=== PATIENT | female | born 1960 | race Caucasian/White ===

== ENCOUNTER 2025-01-08 22:34 | Inpatient (IN) | payer MEDICAID, SELFPAY ==
[2025-01-08 22:39] VITALS: BP 202/94; PULSE 68; RESP 16; TEMP 36.8; O2SAT 96
[2025-01-08 22:41] VITALS: BP 213/96
--- NOTE | 2025-01-08 22:43 | XR_ITS ---
Examination: AP chest single view Technique one AP portable upright chest single view Date and time: January 09, 2025, 0105 hours Comparison 02/24/2006. INDICATIONS: Stroke alert, altered mental status focal neurologic deficit today. FINDINGS: Normal heart size. No aspiration pneumonia. The osseous structures are demineralized IMPRESSION: Negative for aspiration pneumonia.
--- NOTE | 2025-01-08 22:43 | XR_ITS ---
Examination: CTA carotids with intravenous contrast CTA brain, head with intravenous contrast. 2-D sagittal, coronal reconstructions. 3-D reconstructions. Exam date and time: January 08, 2025 11:02 PM INDICATIONS: Stroke alert, onset focal neurologic deficit today CTDI: vol (mGy) 20.69 DLP: (mGycm) 531 Technique: Multiple CTA axial brain, head carotid images post intravenous contrast injection 75 cc, [id number]. 2-D sagittal, coronal reconstructions. 3-D reconstructions, 3-D post processing including vascular maximum intensity projection images. Low dose protocols were performed. One or more of the following dose reduction techniques were used; automated exposure control, adjustment of the mA and/or KV according to patient size, use of iterative reconstruction technique. Findings: No significant stenoses common carotid carotid bifurcations or internal carotid artery stenoses Dominant right vertebral artery in the neck with no critical stenoses No cerebral as well as arterial occlusions, or thrombus. IMPRESSION: No significant neck arterial stenoses No cerebral arterial occlusions or thrombus
--- NOTE | 2025-01-08 22:43 | EKG_ITS ---
[facility] Test Date: 2025-01-08 Pat Name: LESLEY SIMONS Department: Room: - Gender: Female [employer] Supervisor: : 1960 Requested By: Deric Murray Order Number: [id number] Reading MD: Deric Murray Measurements Intervals [place] Rate: 74 P: 58 AK: 195 QRS: 7 QRSD: 98 T: 48 QT: 391 QTc: 435 Interpretive Statements SINUS RHYTHM No previous ECG available for comparison /store/S0/[id number]/ecg/[id number].pdf
--- NOTE | 2025-01-08 22:43 | XR_ITS ---
Examination: CT brain head without contrast. 2-D sagittal coronal reconstructions Date and time of exam:January 08 10:59 PM INDICATIONS: Stroke alert, onset focal neurologic deficit today CTDI: vol (mGy):44.2 DLP: (mGycm):909 Technique: Multiple CT axial sections of the brain have been obtained, 5 mm slice thickness. Contrast has not been administered. 2-D sagittal, coronal reconstructions have been obtained Low dose protocols were performed. One or more of the following dose reduction techniques were used; automated exposure control, adjustment of the mA and/or KV according to patient size, use of iterative reconstruction technique. Findings: No significant ventricular enlargement. Intra-axial or extra-axial hemorrhage density is not seen. No mass effect or midline shift Basal cisterns are not remarkable. Fourth ventricle is midline. Cranial vault intact. Impression: Negative for acute hemorrhage, mass effect or midline shift
--- NOTE | 2025-01-08 22:44 | PD.EDNEURO ---
Neuro Symptoms Deficit-RME/HPI General Chief Complaint: Neuro Symptoms/Deficit Stated Complaint: CONFUSED Time Seen by Provider: 01/08/25 22:48 Arrival date/time: 01/08/25 22:34 RME / HPI RME / HPI Narrative: DR. MORALES MAIN ED EVALUATION: 64 y/o female with Hx of Deafness, HTN, DM, and Hypercholesterolemia presents to ED c/o slower-paced gait, slow to respond, and generalized weakness s/p being pulled over by [place] [employer] x approximately 2 hours. Patient stated that she needed to go for a drive, left the house, and ended up in [place]. Son states that patient is usually very active. No other complaints. Related Data Home Medications ?Medication ?Instructions ?Recorded ?Confirmed Albuterol Sulfate HFA (INHALER) 2 puff inhalation Q6HR #0 02/08/14 (PROVENTIL HFA (INHALER)) inhalations Albuterol Sulfate HFA (INHALER) 2 puff inhalation Q6HR #0 02/08/14 (PROVENTIL HFA (INHALER)) inhalations Cyclobenzaprine * (FLEXERIL *) 5 mg PO TID #0 tabs 02/08/14 Fluticasone/Salmeterol DISKUS * 1 puff inhalation BID #0 puffs 02/08/14 (ADVAIR DISKUS 250/50 *) hydrochlorothiazide 25 mg tablet 25 mg PO QAM #0 tabs 02/08/14 ipratropium bromide 0.02 % 0.5 mg inhalation Q6HR ##0 02/08/14 solution for inhalation meclizine 25 mg tablet (Antivert) 25 mg PO QDAY #0 tabs 02/08/14 metoprolol tartrate 25 mg tablet 25 mg PO BID #0 tabs 02/08/14 prednisone 20 mg tablet 20 mg PO QAM #0 tabs 02/08/14 aspirin 81 mg chewable tablet 81 mg PO QDAY ##0 02/22/15 Allergies Allergy/AdvReac Type Severity Reaction Status Date / Time cephalexin Allergy Severe RESPIRATORY Verified 01/08/25 22:35 DISTRESS Penicillins Allergy Severe RESPIRATORY Verified 01/08/25 22:35 DISTRESS adhesive tape Allergy Mild BURN SKIN Verified 01/08/25 22:35 bacitracin Allergy Mild SKIN BURN Verified 01/08/25 22:35 neomycin Allergy Mild SKIN BURN Verified 01/08/25 22:35 polymyxin B Allergy Mild SKIN BURN Verified 01/08/25 22:35 Review of Systems Review of Systems Systems Reviewed: All systems reviewed, normal except as documented Past Medical History Past Medical History CARDIAC: Positive Cardiac Disorders, Hypercholesterolemia and Hypertension ENT: Positive History of ENT Problems and Deafness ENDOCRINE: Positive Endocrine Disorders and Diabetes Mellitus Type 2 Social History SMOKING STATUS: Never smoker ED Exam Narrative Physical exam: Generally patient is alert and very hard of hearing but no obvious distress neck showed no nuchal rigidity and no bruits. Heart regular rate and rhythm lungs clear to auscultation equal bilaterally abdomen soft bowel sounds present also nontender neurologic exam showed no facial asymmetry. She is able to repeat my sentences. No focal motor deficits. Course Quality Measures Suspected type of Stroke: Unknown at this time Last know well: unknown Tenecteplase given: Reason(s) TPA not given: Stroke severity too mild (non-disabling) and Unable to determine eligibility not given stroke Orders Category Date Time Status Bedside Blood Glucose NOW Care 01/08/25 22:37 Active Bedside Blood Glucose NOW Care 01/08/25 22:43 Completed Expanding Machine Operator NOW Care 01/08/25 22:43 Active Continuous Pulse Oximetry NOW Care 01/08/25 22:43 Completed EKG (ED ONLY) *Do not use* NOW Care 01/08/25 22:43 Completed Fingerstick [Bedside Blood Glucose] NOW Care 01/08/25 22:39 Completed In and Out Catheter NEEDED Care 01/08/25 22:43 Active Insert IV NOW Care 01/08/25 22:42 Active Insert IV NOW Care 01/08/25 22:43 Completed MRI Screening NOW Care 01/08/25 23:27 Active NIH Stroke Scale now Care 01/08/25 22:43 Active NPO NOW Care 01/08/25 22:43 Active Nurse Swallow Screen x1 Care 01/08/25 22:43 Active Consult to Neurology / Tele-Neurology Routine Cons 01/08/25 22:[address] angio stroke protocol Stat Exams 01/08/25 22:[address] stroke protocol Stat Exams 01/08/25 22:43 Completed EKG (ED Only) Stat Exams 01/08/25 22:43 Draft MR head/brain wo con Urgent Exams 01/08/25 Stop Req XR chest 1V portable Stat Exams 01/08/25 22:43 Taken CBC Stat Lab 01/08/25 22:42 Completed Comprehensive Metabolic Panel Stat Lab 01/08/25 22:42 Completed Drug Screen,Urine Stat Lab 01/08/25 23:49 Completed Magnesium Stat Lab 01/08/25 22:42 Completed Partial Thromboplastin Time Stat Lab 01/08/25 22:42 Completed Prothrombin Time with INR Stat Lab 01/08/25 22:42 Completed Troponin I Stat Lab 01/08/25 22:42 Completed Urinalysis Stat Lab 01/08/25 23:49 Completed Urine Culture Stat Lab 01/08/25 23:49 Received Aspirin Med 01/08/25 23:25 Discontinued 325 mg PO X1 ONE Clopidogrel [Plavix] Med 01/08/25 23:25 Discontinued 300 mg PO X1 ONE Labetalol IV [Trandate IV] Med 01/08/25 22:43 Active 10 mg IVP Q15M PRN Labetalol IV [Trandate IV] Med 01/08/25 22:51 Discontinued 20 mg IVP X1 ONE Ondansetron Inj [Zofran Inj] Med 01/08/25 22:43 Active 4 mg IVP Q4HR PRN Oxygen Delivery NOW RT 01/08/25 22:43 Active Vital Signs Vital signs: Vital Signs Temperature 98.2 F 01/08/25 22:39 Pulse Rate 68 01/08/25 22:39 Respiratory Rate 16 01/08/25 22:39 Blood Pressure 202/94 H 01/08/25 22:39 Pulse Oximetry (%) 96 01/08/25 22:39 Oxygen Delivery Method Room Air 01/08/25 22:39 Neuro Symptoms / Deficit MDM Narrative MDM Narrative:: Scribe Attestation: IRhea am scribing for and in the presence of Dr. Morales. Provider Notation: Although this document has been carefully reviewed, there may still be some phonetic and other typographical errors.? These errors are purely grammatical due to imperfections in the software program and should not be construed in any way to? compromise the substance of the patient's medical care during this visit.\ Stroke alert was called. It was uncertain when the symptoms may have started. Patient originally arrived hypertensive with a blood pressure of 210/110. Before the patient was able to receive the labetalol the patient's blood pressure spontaneously decreased to 153/93. Head CT was negative. CT angio of the head and neck showed no large vessel occlusion. Dr. Esteban Rodriguez was the stroke neurologist who evaluated the patient. NIHSS score was found to be 3. Dr. Rodriguez recommended giving the patient Plavix 300 mg p.o. and aspirin 325 mg p.o. which she placed in the computer and the patient has received. He recommends for the patient to be admitted to the hospital for further treatment and evaluation and for further stroke evaluation. I did discuss this case with the hospitalist on-call who will admit the patient to hospital for further treatment and evaluation. Patient data External records reviewed:: [facility] previous records (No prior ED records available for review.) Clinical information provided by:: family (Son) Social determinants that could affect healthcare access:: none Patient has the following chronic illnesses:: Hypercholesterolemia, Hypertension, Deafness, Diabetes Mellitus Type 2 How is presenting disease/condition affected by chronic disease/condition?: exacerbated by Evaluation data The following diagnostics were reviewed and interpreted by me:: lab results, radiology exam(s) and EKG tracing(s) Lab and/or radiology exams considered but not ordered:: None Interpretation Summary: RADIOLOGY Head/Brain CT: Findings: No significant ventricular enlargement. Intra-axial or extra-axial hemorrhage density is not seen. No mass effect or midline shift Basal cisterns are not remarkable. Fourth ventricle is midline. Cranial vault intact. Impression: Negative for acute hemorrhage, mass effect or midline shift Head/Neck CTA: Findings: No significant stenoses common carotid carotid bifurcations or internal carotid artery stenoses Dominant right vertebral artery in the neck with no critical stenoses No cerebral as well as arterial occlusions, or thrombus. IMPRESSION: No significant neck arterial stenoses No cerebral arterial occlusions or thrombus Medications / Prescriptions Medications or Prescriptions considered but not ordered:: None Medication administrations:: Medication Administration History Labetalol HCl (Labetalol Inj 5 Mg/Ml Vial 20 Ml) 10 mg IVP Q15M PRN PRN Reason: HYPER Ondansetron HCl (Ondansetron Inj 2 Mg/Ml Inj 2 Ml) 4 mg IVP Q4HR PRN; Protocol PRN Reason: NAUSEA OR VOMITING Stop: 02/07/25 22:42 Discontinued Medications Aspirin (Aspirin 325 Mg Tablet) 325 mg PO X1 ONE Stop: 01/08/25 23:26 Last Admin: 01/08/25 23:53 Dose: 325 mg Documented By: PRIYANKA Clopidogrel Bisulfate (Clopidogrel Bisulfate 75 Mg Tablet) 300 mg PO X1 ONE Stop: 01/08/25 23:26 Last Admin: 01/08/25 23:53 Dose: 300 mg Documented By: PRIYANKA Labetalol HCl (Labetalol Inj 5 Mg/Ml Vial 20 Ml) 20 mg IVP X1 ONE Stop: 01/08/25 22:52 Last Admin: 01/08/25 23:25 Dose: Not Given Documented By: PRIYANKA Non-Admin Reason: Change of Condition See above if any Consultations Consultation(s) initiated? (list below): Yes Consultation #1 (Physician, Specialty, Details): Teleneurologist, Dr. Rodriguez, made aware of the patient?s HPI, PMHx, lab and/or radiology results. Discussed treatment plan. Time: 23:33 Consultation #2 (Physician, Specialty, Details): Dr. Allison made aware of the patient?s HPI, PMHx, lab and/or radiology results. Treatment plan was discussed. Will admit for further evaluation and management. Accepts patient for admission. Time: 00:46 Diagnosis Neuro Differential Diagnosis: delirium, subarachnoid hemorrhage, peripheral neuropathy, cerebrovascular accident (Hypertensive urgency vs emergency) and transient cerebral ischemia Most likely diagnosis given after review of the tests above:: None Admission Indicated Admission indicated?: indicated Admission Request Was there a request for admission?: Yes Admission Attestation Admission request attestation: Discussed case with [] from Hospitalist service regarding admission. Discussed patients ED course, exam findings, labs, and radiology results. The Hospitalist [agrees,declines] to accept the patient for admission. Disposition Plan Disposition Plan: Admit Discharge Plan Plan Patient Disposition: Admit Acute Care w/in Hospital Prescriptions/Referrals Prescriptions/Med Rec: No Action Cyclobenzaprine * (FLEXERIL *) 5 MG tablet 5 mg PO TID Qty: 0 Fluticasone/Salmeterol DISKUS * (ADVAIR DISKUS 250/50 *) 1 DISK/DEV DISK.W.DEV 1 puff Inhalation BID Qty: 0 hydrochlorothiazide 25 MG tablet 25 mg PO QAM Qty: 0 meclizine [Antivert] 25 MG tablet 25 mg PO QDAY Qty: 0 ipratropium bromide 0.2 MG/ML solution 0.5 mg Inhalation Q6HR Qty: 0 Albuterol Sulfate HFA (INHALER) (PROVENTIL HFA (INHALER)) 8.5 GM HFA.AER.AD 2 puff Inhalation Q6HR Qty: 0 prednisone 20 MG tablet 20 mg PO QAM Qty: 0 metoprolol tartrate 25 MG tablet 25 mg PO BID Qty: 0 Albuterol Sulfate HFA (INHALER) (PROVENTIL HFA (INHALER)) 8.5 GM HFA.AER.AD 2 puff Inhalation Q6HR Qty: 0 aspirin 81 MG tablet,chewable 81 mg PO QDAY Qty: 0 Referrals: Micheal Sr MD [Primary Care Provider] - In 1 week Problem List Clinical Impression: Cerebrovascular accident Patient/Caregiver Discharge Instructions Print Language: Slovak Stand Alone Forms: Codie Award Info., Patient Portal Info Letter
[2025-01-08 22:58] LABS: Basophils # (Auto) 0.0 Thou/mm3 (0.0-0.2); Basophils % (Auto) 1 % (0-2.5); Eosinophils # (Auto) 0.3 Thou/mm3 (0.0-0.5); Eosinophils % (Auto) 4 % (0-10); Hematocrit 41.4 % (36.0-46.0); Hemoglobin 13.3 g/dL (12.0-16.0); Immature Granulocytes Auto 0.02 Thou/mm3 (0.00-0.00); Lymphocytes # (Auto) 1.8 Thou/mm3 (1.0-4.8); Lymphocytes % (Auto) 22 % (10-50); Mean Corpuscular HGB Conc 32.1 g/dl (31.0-37.0); Mean Corpuscular Hemoglobin 28.5 pg (25.0-35.0); Mean Corpuscular Volume 89 fL (80-100); Monocytes # (Auto) 0.5 Thou/mm3 (0.0-0.8); Monocytes % (Auto) 7 % (0-12); Neutrophils # (Auto) 5.4 Thou/mm3 (1.8-7.7); Neutrophils % (Auto) 67 % (37-80); Nucleated Red Blood Cell # 0.00 Thou/mm3 (0.00-0.00); Nucleated Red Blood Cell % 0 /100 WBC (0); Platelet Count 233 Thou/mm3 (140-440); RDW Standard Deviation 43.4 fL (36.4-46.3); Red Blood Count 4.66 Miln/mm3 (4.00-5.20); White Blood Count 8.1 Thou/mm3 (3.6-11.0)
[2025-01-08 23:09] VITALS: BP 157/90; PULSE 77; RESP 14; TEMP 36.7; O2SAT 97
[2025-01-08 23:11] LABS: INR 0.9 (0.9-1.3); Partial Thromboplastin Time 27.0 Seconds (22.0-36.0); Prothrombin Time 10.4 Seconds (9.0-12.2)
[2025-01-08 23:13] VITALS: PULSE 77; RESP 20; RESP 97
[2025-01-08 23:14] LABS: Alanine Aminotransferase < 7 U/L (10-49); Albumin, Serum 4.5 gm/dL (3.4-4.8); Albumin/Globulin Ratio 1.7 (1.2-2.2); Alkaline Phosphatase 120 U/L (46-116); Anion Gap 10 (7-16); Aspartate Amino Transferase 19 U/L (0-34); BUN/Creatinine Ratio 7 Ratio (12-20); Bilirubin,Total 0.7 mg/dL (0.3-1.2); Blood Urea Nitrogen 8 mg/dL (9-23); Calcium 10.1 mg/dL (8.3-10.6); Calcium (Corrected) 10.1 mg/dL (8.5-10.1); Carbon Dioxide 23.7 mMol/L (20.0-31.0); Chloride 112 mMol/L (98-107); Creatinine (Component) 1.1 mg/dL (0.6-1.3); Globulin 2.6 gm/dL (2.3-3.5); Glucose 117 mg/dL (74-106); Magnesium 2.2 mg/dL (1.6-2.6); Osmolality,Calculated 289 (275-295); Potassium 3.9 mMol/L (3.4-5.1); Sodium 146 mMol/L (136-145); Total Protein 7.1 gm/dL (5.7-8.2); Troponin I < 0.002 ng/mL (0.0-0.045); eGFR 57 See Note
[2025-01-08 23:20] VITALS: BMI 21.9
--- NOTE | 2025-01-08 23:25 | PC.NURSE ---
PT ARRIVED TO ED WITH SON. SON STATES THAT HER SPEECH HAS BEEN OFF . SON REPORTS THAT PT GOT PULLED OVER BY [place] [employer]. STROKE ALERT WAS CALLED. TELE NEURO WAS ACTIVATED. BLOOD SUAGR WAS TAKEN (112). DR. ESPARZA WAS THE TELE NEURO SPECIALIST. PT HAS EVIDENT APHASIA AND GOES THROUGH PHASES OF CONFUSION. PT DID NOT HAVE ANY MOTOR DEFICITS. PER DR. ESPARZA PT WAS NOT A CANDIATE OF THROMOLTICS. DR. MORALES WAS ADVICED OF MOST RECENT BP. PER DR MONTERROSO, LABETALOL WAS HOLD PER CHANGE IN PTS CONDITION. SON IS CURRENTLY AT BEDSIDE WITH PT
--- NOTE | 2025-01-08 23:38 | PD.TNEURO ---
Tele Neuro Consultation Consultation Date 01/08/25 Most Recent Vital Signs Last Vital Signs Temp 98.1 F 01/08/25 23:09 Pulse 77 01/08/25 23:13 Resp 20 01/08/25 23:13 BP 157/90 H 01/08/25 23:09 Pulse Ox 97 01/08/25 23:09 O2 Del Method Room Air 01/08/25 23:09 Laboratory-Coagulation Panel PT 10.4 Seconds (9.0-12.2) 01/08/25 22:42 INR 0.9 (0.9-1.3) 01/08/25 22:42 APTT 27.0 Seconds (22.0-36.0) 01/08/25 22:42 Consultation Narrative [facility] Tele[facility]rology Consult [facility] Patient Name:???Rosanne Meza Date of :???1960 Identification Number:??? Date of Service:???01/08/2025 22:37:45 Diagnosis:?R47.9 - Transient Speech Difficulties Impression: ?64YOF with a PMHx of congenital deafness, HTN, HLD, DM2, presenting with transient episodes of echolalia. In setting of presentation, principal concern involves wither a small L hemispheric ischemic stroke vs an underlying encephalopathy vs a metabolic encephalopathy. In setting of concern for stroke, presentation peculiar given intermittent clear speech with intact prosody, admixed with episodes of echolalia. Moving forward, and particularly in setting of uncertain true last known well (at 2230, patient was noted to be confused, and son unsure of when the last time she was seen intact would have been), would recommend an aggressive antiplatelet therapy now, with recommendation for admission and stroke workup alongside metabolic and infectious workup Our recommendations are outlined below. Recommendations: ? Stroke/Telemetry Floor ? Neuro Checks (Q2) ? Bedside Swallow Eval ? DVT Prophylaxis ? IV Fluids, Normal Saline ? Head of Bed 30 Degrees ? Euglycemia and Avoid Hyperthermia (PRN Acetaminophen) ? Bolus with Clopidogrel 300 mg bolus x1 and initiate dual antiplatelet therapy with Aspirin 81 mg daily and Clopidogrel 75 mg daily ?Permissive HTN to 180/110 ?MRI Brain wo con ?Lipid panel, TSH, A1C, B12 ?Infectious and metabolic workup per primary team ?Transthoracic Echocardiogram ?PT/OT/SPRAY GUN OPERATOR Eval Sign Out: ? Discussed with Emergency Department Provider Advanced Imaging: CTA Head and Neck Completed. LVO:No Patient is not a candidate for FLOR Metrics: Last Known Well: Unknown Dispatch Time: 01/08/2025 22:37:45 Arrival Time: 01/08/2025 22:34:00 Initial Response Time: 01/08/2025 22:44:12Symptoms: Confusion, repetitive speech. Initial patient interaction: 01/08/2025 22:46:30 NIHSS Assessment Completed: 01/08/2025 22:53:25Patient is not a candidate for Thrombolytic. Thrombolytic Medical Decision: 01/08/2025 22:53:26Patient was not deemed candidate for Thrombolytic because of following reasons: other diagnosis suspected High suspicion for stuttering symptoms in setting of stuttering lacunar stroke vs an underlying encephalopathy. Additionally, unclear last known well as there is clarity on symptoms onset yet unclear when the last time speech was intact occured. CT Head: I personally reviewed all the CT images that were available to me and it showed: no blood products or early ischemic changes Primary Provider Notified of Diagnostic Impression and Management Plan on: 01/08/2025 23:31:34 History of Present Illness:Patient is a 64 year old Female. Patient was brought by private transportation with symptoms of Confusion, repetitive speech. 64YOF with a PMHx of deafness, HTN, HLD, DM2, presenting to the [facility] ED in the setting of acute onset confusion and slowness of speech and movement. Per patient, son, and staff, patient was noticed by her father to have started acting strangely approximately two hours prior to arrival, around 2030pm on 01/08. Of note, patient's son admits that family was likely not paying close attention before this; however, at that time, she was noted to be repeating questions over and over and complaining of a severe headache in the back of her head. After appx one hour, patient told family that she was going for a drive, and was subsequently pulled over by police who noticed that she was confused and repeating questions and statements., prompting call to patient's father who called son, who came to cigar packer and picker patient and bring her to the Emergency Department for evaluation. Patient with ongoing repetitive speech that waxes and wanes, yet able to compose thoughts clearly intermittently with intact speech. Denies any history of strokes or seizures and admits to resolution of headache at this time. Past Medical History: ?Hypertension ?Diabetes Mellitus ?Hyperlipidemia ?There is no history of Atrial Fibrillation ?There is no history of Stroke ?There is no history of Seizures Medications: No Anticoagulant use? No Antiplatelet use Reviewed EMR for current medications Allergies:? Reviewed Social History: Drug Use: No Family History: There is no family history of premature cerebrovascular disease pertinent to this consultation ROS : 14 Points Review of Systems was performed and was negative except mentioned in HPI. Past Surgical History: There Is No Surgical History Contributory To Today?s Visit Examination: BP(163/80),?Pulse(61),?Blood Glucose(112) 1A: Level of Consciousness - Alert; keenly responsive?+ 0 1B: Ask Month and Age - 1 Question Right?+ 1 1C: Blink Eyes & Squeeze Hands - Performs Both Tasks?+ 0 2: Test Horizontal Extraocular Movements - Normal?+ 0 3: Test Visual Fontenot - No Visual Loss?+ 0 4: Test Facial Palsy (Use Grimace if Obtunded) - Normal symmetry?+ 0 5A: Test Left Arm Motor Drift - No Drift for 10 Seconds?+ 0 5B: Test Right Arm Motor Drift - No Drift for 10 Seconds?+ 0 6A: Test Left Leg Motor Drift - No Drift for 5 Seconds?+ 0 6B: Test Right Leg Motor Drift - No Drift for 5 Seconds?+ 0 7: Test Limb Ataxia (FNF/Heel-Michaels) - No Ataxia?+ 0 8: Test Sensation - Normal; No sensory loss?+ 0 9: Test Language/Aphasia - Mild-Moderate Aphasia: Some Obvious Changes, Without Significant Limitation?+ 1 10: Test Dysarthria - Normal?+ 0 11: Test Extinction/Inattention - No abnormality?+ 0 NIHSS Score:?2 NIHSS Free Text :?Intermittently patient with echolalia which intermittently completely resolves and patient's speech returns to intact. No clear focal deficits noted; per son, no facial asymmetry and patient appears to be at baseline with exception of intermittent repetitive speech. Pre-Morbid Modified [place] Scale:2 Points = Slight disability; unable to carry out all previous activities, but able to look after own affairs without assistance Spoke with :?Dr Blount This consult was conducted in real time using interactive audio and video technology. Patient was informed of the technology being used for this visit and agreed to proceed. Patient located in hospital and provider located at home/office setting. Patient is being evaluated for possible acute neurologic impairment and high probability of imminent or life-threatening deterioration. I spent total of 25 minutes providing care to this patient, including time for face to face visit via telemedicine, review of medical records, imaging studies and discussion of findings with providers, the patient and/or family. Dr Ryan Rodriguez [facility] For Inpatient follow-up with [facility] physician please call [facility] at . As we are not an outpatient service for any post hospital discharge needs please contact the hospital for assistance. If you have any questions for the [facility] physicians or need to reconsult for clinical or diagnostic changes please contact us via [facility] at .
[2025-01-08] MEDS: CLOPIDOGREL BISULFATE 75 MG TABLET 300 MG PO (23:53)
[2025-01-09] VITALS (10 sets, daily range): BP systolic 112–190; BP diastolic 68–94; PULSE 61–87; RESP 18–98; TEMP 36.1–36.9; O2SAT 96–100; BMI 15.0
[2025-01-09 00:10] LABS: Collection Type, Urine Clean Catch
[2025-01-09 00:16] LABS: Bilirubin,Urine Negative (Negative); Blood,Urine Negative (Negative); Clarity,Urine Clear (Clear/Hazy); Color,Urine Lt-Yellow (Lt Yel-Yel); Glucose, Urine Negative (Negative); Ketones,Urine Negative (Negative); Leukocyte Esterase,Urine Positive (Negative); Nitrite,Urine Negative (Negative); PH,Urine 7.0 (5.0-7.0); Protein,Urine Negative (Neg - Trace); RBC,Urine 2 /hpf (0-3); Specific Gravity,Urine 1.040 (1.001-1.035); Squamous Epithelial Cell,Urine 1 /hpf (0-5); Urobilinogen,Urine Negative mg/dL (0.0-1.0); WBC,Urine 1 /hpf (0-5)
[2025-01-09 00:24] LABS: Amphetamine/Methamp Scrn,U Negative (Negative); Barbiturate Screen,Urine Negative (Negative); Benzodiazepines Screen,Urine Negative (Negative); Benzoylecgonine Screen, Ur Negative (Negative); Fentanyl Screen,Urine Negative (Negative); Opiate Screen,Urine Negative (Negative); THC Screen,Urine Negative (Negative)
--- NOTE | 2025-01-09 01:10 | ECHO_ITS ---
Transthoracic Echo Report Ht (in): Wt (lb): Exam Location: Echo Lab Status: Inpatient Software Controls Engineer: Shabnam Farmer Indications: Procedure Performed: BP: 137 / 73 HR: 68 MEASUREMENTS (Male / Female) Normal Values 2D ECHO LV Diastolic Diameter PLAX 4.4 cm 4.2 - 5.9 / 3.9 - 5.3 cm LV Systolic Diameter PLAX 3.0 cm IVS Diastolic Thickness 0.8 cm 0.6 - 1.0 / 0.6 - 0.9 cm LVPW Diastolic Thickness 0.8 cm 0.6 - 1.0 / 0.6 - 0.9 cm LV Relative Wall Thickness 0.4 LVOT Diameter 1.9 cm Aortic Root Diameter 2.4 cm LA Systolic Diameter LX 3.2 cm 3.0 - 4.0 / 2.7 - 3.8 cm M-MODE Aortic Root Diameter MM 2.3 cm LA Systolic Diameter MM 3.4 cm LA Ao Ratio MM 1.5 AV Cusp Separation MM 1.6 cm DOPPLER AV Peak Velocity 135.5 cm/s AV Peak Gradient 7.3 mmHg AV Mean Gradient 5.0 mmHg AV Velocity Time Integral 30.8 cm LVOT Peak Velocity 109.5 cm/s LVOT Peak Gradient 4.8 mmHg LVOT Velocity Time Integral 26.8 cm AV Area Cont Eq vti 2.5 cm? AV Area Cont Eq pk 2.3 cm? MV Area PHT 4.1 cm? Mitral E Point Velocity 43.2 cm/s Mitral A Point Velocity 53.4 cm/s Mitral E to A Ratio 0.8 LV E' Lateral Velocity 7.9 cm/s Mitral E to LV E' Lateral Ratio 5.4 LV E' Septal Velocity 6.3 cm/s Mitral E to LV E' Septal Ratio 6.8 FINDINGS Left Ventricle Normal left ventricular size, wall thickness, systolic function with no obvious regional wall motion abnormalities. The ejection fraction is visually estimated at 55-60 %. There is grade I diastolic dysfunction of the left ventricle (impaired relaxation pattern). Right Ventricle The right ventricle is normal in size and systolic function. Left Atrium The left atrium is normal by two-dimensional, color flow and Doppler imaging with no structural abnormalities, no thrombus formation present. Right Atrium The right atrium is normal by two-dimensional imaging, color flow and Doppler imaging with no structural abnormalities, no thrombus formation present. Atrial Septum The interatrial septum appears normal with no evidence of a shunt. Aorta The aorta is normal by two-dimensional, color flow and Doppler interrogation. Mitral Valve The mitral valve is normal by two-dimensional, color flow and Doppler interrogation. There is no significant mitral valve regurgitation, stenosis or prolapse. Aortic Valve The aortic valve is trileaflet and normal by two-dimensional, color flow and Doppler interrogation. There is no significant aortic valve regurgitation. Tricuspid Valve The tricuspid valve is normal by two-dimensional, color flow and Doppler interrogation. There is trace tricuspid valve regurgitation. Pulmonic Valve The pulmonic valve is not well visualized. There is no significant pulmonic valve regurgitation. Vessels The pulmonary artery appears normal. The inferior vena cava pulmonary and hepatic veins appear normal. Pericardium The pericardium is normal by two-dimensional imaging. There is no significant pericardial effusion. CONCLUSIONS Indication: Stroke Negative bubble study. No evidence of intracardiac shunts or PFO detected. No evidence of cardiac thrombi. Normal left ventricular size and function. Estimated EF at 55-60 %. There is grade I diastolic dysfunction. The RV is normal in size and systolic function. Trace TR. Cielo Penaloza (Electronically Signed) Final Date: 09 January 2025 11:54
--- NOTE | 2025-01-09 01:19 | PD.RESHP ---
Documentation for date of: 01/09/25 HPI History of Present Illness Chief complaint: Altered mental status History of present illness: 64-year-old female with past medical history of hypertension, [id number] type 2 diabetes, rheumatoid arthritis presented to the ED on 01/08 after she was found by family members for having altered mental status. According to ultrasound, patient was seen outside her house with red face and out of her baseline mental status. Patient apparently repeating same sentences that are set to her. Patient herself states that she feels fine and denies having any concerning symptoms such as headache, dizziness, chest pain, shortness of breath, abdominal pain or weakness. Patient has not had a similar episode in the past. Difficult to obtain history from patient as she has bouts of repeating herself multiple times. Medical history: As stated above Surgical history: Total abdominal hysterectomy Allergies: Cephalexin, penicillin caused respiratory distress, adhesive tape, bacitracin, neomycin polymyxin B causes skin burn Medications: Pending med rec Family history: Noncontributory Social history: Patient lives with stepfather in [place], is . Does not work currently and denies any smoking tobacco, alcohol or illicit drug use. ROS: All 12 systems assessed and the patient denies unless otherwise stated in HPI. In the ED, patient presented in hypertensive emergency blood pressure 202/94, heart rate 68, respiratory rate 16, afebrile satting 96 on room air. Labs largely unremarkable, BUN of 8, creatinine 1.1 with EGFR of 57, urinalysis does not show any sign of infection. EKG shows sinus rhythm without any concerning ST changes, head CT is negative for any acute findings and head and neck CTA does not show any significant arterial stenosis or cerebral arterial occlusion/thrombus. Stroke alert was initiated in the ED with NIHSS score of 3. Patient will be admitted for stroke rule out with neurology consultation and close monitoring. Exam Vital Signs Temp Pulse Resp BP Pulse Ox O2 Del Method 98.1 F 77 20 157/90 H 97 Room Air 01/08/25 23:09 01/08/25 23:13 01/08/25 23:13 01/08/25 23:09 01/08/25 23:09 01/08/25 23:09 Narrative Exam Physical Exam: GENERAL: Awake, answering questions appropriately but Echolalia present, appears stated age HEENT: NC/AT. Moist mucosa. PERRLA/EOMI. CARDIO: Heart RRR, no obvious murmurs, no JVD. PULM: No coughing or visible SOB. Lungs CTA B/L. GI: Abdomen soft, NT/ND, +BS. SKIN/MSK/EXT: No wounds/discoloration/rashes/edema/amputations. +Pedal pulses present B/L. NEURO: Oriented x3, cranial nerves II to XII grossly intact, muscle strength 5 out of 5 in bilateral upper and lower extremities, sensations grossly intact, Moves extremities x4, no focal neurologic deficits noted. Results: Labs 01/08/25 22:42 01/08/25 22:42 Labs: Short CBC 01/08/25 Range/Units 22:42 WBC 8.1 (3.6-11.0) Thou/mm3 Hgb 13.3 (12.0-16.0) g/dL Hct 41.4 (36.0-46.0) % Plt Count 233 (140-440) Thou/mm3 BMP 01/08/25 22:42 Sodium 146 H Potassium 3.9 Chloride 112 H Carbon Dioxide 23.7 BUN 8 L Creatinine 1.1 Glucose 117 H Calcium 10.1 Cardiac Enzymes 01/08/25 Range/Units 22:42 Troponin I < 0.002 (0.0-0.045) ng/mL Liver Function 01/08/25 Range/Units 22:42 Total Bilirubin 0.7 (0.3-1.2) mg/dL AST 19 (0-34) U/L ALT < 7 L (10-49) U/L Alkaline Phosphatase 120 H (46-116) U/L Albumin 4.5 (3.4-4.8) gm/dL Urine 01/08/25 Range/Units 23:49 Urine Color Lt-Yellow (Lt Yel-Yel) Urine Clarity Clear (Clear/Hazy) Urine pH 7.0 (5.0-7.0) Ur Specific [place] 1.040 H (1.001-1.035) Urine Protein Negative (Neg - Trace) Urine Glucose (UA) Negative (Negative) Quality Measures Quality Measures stroke Suspected type of Stroke: Unknown at this time Tenecteplase given: Reason(s) Tenecteplase not given: Outside the time window and Stroke severity too mild (non-disabling) not given Rehab services: PT evaluation ordered VTE Prophylaxis: mechanical Antithrombotic by day 2:: ordered Statin ordered: >75 y/o moderate or high intensity dose Anticoagulation ordered for A-fib or flutter (current or hx): not indicated Medications Home Medications and Allergies Home Medications ?Medication ?Instructions ?Recorded ?Confirmed ?Type Albuterol Sulfate HFA (INHALER) 2 puff inhalation Q6HR #0 02/08/14 History (PROVENTIL HFA (INHALER)) inhalations Albuterol Sulfate HFA (INHALER) 2 puff inhalation Q6HR #0 02/08/14 History (PROVENTIL HFA (INHALER)) inhalations Cyclobenzaprine * (FLEXERIL *) 5 mg PO TID #0 tabs 02/08/14 History Fluticasone/Salmeterol DISKUS * 1 puff inhalation BID #0 puffs 02/08/14 History (ADVAIR DISKUS 250/50 *) hydrochlorothiazide 25 mg tablet 25 mg PO QAM #0 tabs 02/08/14 History ipratropium bromide 0.02 % 0.5 mg inhalation Q6HR ##0 02/08/14 History solution for inhalation meclizine 25 mg tablet (Antivert) 25 mg PO QDAY #0 tabs 02/08/14 History metoprolol tartrate 25 mg tablet 25 mg PO BID #0 tabs 02/08/14 History prednisone 20 mg tablet 20 mg PO QAM #0 tabs 02/08/14 History aspirin 81 mg chewable tablet 81 mg PO QDAY ##0 02/22/15 History Allergies Allergy/AdvReac Type Severity Reaction Status Date / Time cephalexin Allergy Severe RESPIRATORY Verified 01/08/25 22:35 DISTRESS Penicillins Allergy Severe RESPIRATORY Verified 01/08/25 22:35 DISTRESS adhesive tape Allergy Mild BURN SKIN Verified 01/08/25 22:35 bacitracin Allergy Mild SKIN BURN Verified 01/08/25 22:35 neomycin Allergy Mild SKIN BURN Verified 01/08/25 22:35 polymyxin B Allergy Mild SKIN BURN Verified 01/08/25 22:35 Visit Medications Acetaminophen (Acetaminophen 325 Mg Tablet) 650 mg PO Q6H PRN PRN Reason: PAIN SCALE 1-3 (mild Stop: 02/08/25 01:07 Aspirin (Aspirin Ec 81 Mg Tabec) 81 mg PO QDAY DIGNA Stop: 02/08/25 08:59 Clopidogrel Bisulfate (Clopidogrel Bisulfate 75 Mg Tablet) 75 mg PO QDAY DIGNA Stop: 02/08/25 08:59 Dextrose (Dextrose 50%-Water Inj 50 Ml Syringe) 25 ml IV Q15MIN PRN PRN Reason: BG 50-70 responsive npo pt Stop: 02/08/25 01:10 Dextrose (Dextrose 50%-Water Inj 50 Ml Syringe) 50 ml IV Q15MIN PRN PRN Reason: BG <50 OR BG <70 & pt unresponsive Stop: 02/08/25 01:10 Glucagon (Glucagon Inj 1 Mg Vial) 1 mg IM Q15MIN PRN PRN Reason: BG <70, and no IV access Insulin Human Lispro (Insulin Lispro (Admelog) 1 Unit/0.01 Ml Unit) 0 unit [facility]; Protocol Stop: 02/08/25 07:29 Labetalol HCl (Labetalol Inj 5 Mg/Ml Vial 20 Ml) 10 mg IVP Q15M PRN PRN Reason: BP >200/105 and HR >75 Ondansetron HCl (Ondansetron Inj 2 Mg/Ml Inj 2 Ml) 4 mg IVP Q4HR PRN; Protocol PRN Reason: NAUSEA OR VOMITING Stop: 02/07/25 22:42 Sennosides (Senna Tablet) 1 tab PO QDAY PRN; Protocol PRN Reason: constipation Stop: 02/08/25 01:07 Discontinued Medications Aspirin (Aspirin 325 Mg Tablet) 325 mg PO X1 ONE Stop: 01/08/25 23:26 Last Admin: 01/08/25 23:53 Dose: 325 mg Clopidogrel Bisulfate (Clopidogrel Bisulfate 75 Mg Tablet) 300 mg PO X1 ONE Stop: 01/08/25 23:26 Last Admin: 01/08/25 23:53 Dose: 300 mg Labetalol HCl (Labetalol Inj 5 Mg/Ml Vial 20 Ml) 10 mg IVP Q15M PRN PRN Reason: HYPER Labetalol HCl (Labetalol Inj 5 Mg/Ml Vial 20 Ml) 20 mg IVP X1 ONE Stop: 01/08/25 22:52 Last Admin: 01/08/25 23:25 Dose: Not Given Assessment & Plan Plan 64-year-old female with past medical history of hypertension, [id number]-zwwlnpdff type 2 diabetes, rheumatoid arthritis presented to the ED on 01/08 after she was found by family members for having altered mental status will be admitted for stroke rule out with neurology consultation and close monitoring. #Stroke rule out As noted above, patient presenting with change in mental status DDx: Stroke/TIA, infectious etiology, hypertensive encephalopathy less likely to be seizure In the ED, DAVID score of 3 On assessment, patient has echolalia but otherwise neurologic exam is largely negative EKG shows sinus rhythm without any concerning ST changes head CT is negative for any acute findings and head and neck CTA does not show any significant arterial stenosis or cerebral arterial occlusion/thrombus Plan: Neurology consulted, appreciate recommendations Initiated DAPT with aspirin and Plavix High intensity statin Echo with bubble study MR stroke protocol Permissive hypertension as below Head of bed greater than 30, neurochecks every 4 Aspiration precautions Nurse swallow screen PT consultation Euthermic Monitor blood sugars #Hypertensive emergency #Hypertension As noted above, patient presented with systolic in the high 200s Patient has a history of hypertension and takes metoprolol tartrate, hydrochlorothiazide? 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 Chronic medical problems Pending med rec Plan: Resume home medications when appropriate Health Maintenance: Lines: PIV Diet: Nurse swallow screen, cardiac diet/carb consistent low Bowel: Senna as needed GI prophylaxis: Not needed DVT prophylaxis: SCD Dispo: Stroke rule out Code: Full Patient seen and assessed with attending Dr. Estefany Forte, DO PGY-2 Internal Medicine - [facility] Attending Provider Attestation/Addendum I attest that I was physically present for the evaluation, physical examination, lab and imaging review of the patient with the residents. I discussed the case with the residents and agree with the findings and plans of care as documented above. After examination of the patient and review of the clinical data I feel that this patient needs admission to the hospital for further treatment/evaluation. Patient is a 64 years old female with past medical history of hypertension, diabetes mellitus, rheumatoid arthritis was presented to the ED with complaint of altered mental status. As per the son at bedside, patient was found outside her house and appeared acting differently than her baseline. She was apparently repeating same sentences said to her. At bedside, patient is alert and oriented, able to answer questions and follow commands. Denies any headache, dizziness, chest pain, shortness of breath, limb weakness, numbness or tingling. In the ED, patient was hypertensive with blood pressure of 202/94. Rest of the vitals were within normal limits. Lab results were nonconcerning. Urinalysis negative for pyuria. EKG shows sinus rhythm without ST changes. Head CT was negative for acute hemorrhage, mass effect or midline shift. CTA head/neck negative for intracranial arterial occlusion or thrombus. Stroke alert was called in the ED, teleneurology was consulted. Recommended admission for further workup to rule out stroke. We will admit the patient to rule out stroke/hypertensive emergency. Started on dual antiplatelets, statin. We will obtain echocardiography and MRI/MRA. Physical therapy, speech therapy ordered. We will allow permissive hypertension, patient's blood pressure slightly improved after labetalol she received in the ED. We will continue with labetalol as needed for blood pressure more than 200/105. Started on insulin regimen for diabetes. Kidney function appears to be stable, we will continue to monitor closely and avoid nephrotoxins. Riley Allison MD
--- NOTE | 2025-01-09 01:56 | PC.NURSE ---
PT AMBULATED TO RESTROOM. PT DENIES SOB AND WEAKNESS. THIS RN WAS WITH PT SHE WALKED TO RESTROOM.
[2025-01-09 06:03] LABS: Basophils # (Auto) 0.0 Thou/mm3 (0.0-0.2); Basophils % (Auto) 1 % (0-2.5); Eosinophils # (Auto) 0.2 Thou/mm3 (0.0-0.5); Eosinophils % (Auto) 3 % (0-10); Hematocrit 38.4 % (36.0-46.0); Hemoglobin 12.5 g/dL (12.0-16.0); Immature Granulocytes Auto 0.00 Thou/mm3 (0.00-0.00); Lymphocytes # (Auto) 2.1 Thou/mm3 (1.0-4.8); Lymphocytes % (Auto) 37 % (10-50); Mean Corpuscular HGB Conc 32.6 g/dl (31.0-37.0); Mean Corpuscular Hemoglobin 29.3 pg (25.0-35.0); Mean Corpuscular Volume 90 fL (80-100); Monocytes # (Auto) 0.5 Thou/mm3 (0.0-0.8); Monocytes % (Auto) 8 % (0-12); Neutrophils # (Auto) 3.0 Thou/mm3 (1.8-7.7); Neutrophils % (Auto) 51 % (37-80); Nucleated Red Blood Cell # 0.00 Thou/mm3 (0.00-0.00); Nucleated Red Blood Cell % 0 /100 WBC (0); Platelet Count 195 Thou/mm3 (140-440); RDW Standard Deviation 44.0 fL (36.4-46.3); Red Blood Count 4.26 Miln/mm3 (4.00-5.20); White Blood Count 5.8 Thou/mm3 (3.6-11.0)
[2025-01-09 06:55] LABS: Alanine Aminotransferase 8 U/L (10-49); Anion Gap 10 (7-16); Aspartate Amino Transferase 19 U/L (0-34); BUN/Creatinine Ratio 6 Ratio (12-20); Bilirubin,Total 0.7 mg/dL (0.3-1.2); Blood Urea Nitrogen 7 mg/dL (9-23); Calcium 8.9 mg/dL (8.3-10.6); Carbon Dioxide 22.8 mMol/L (20.0-31.0); Cardiac Risk Estimate 3.1 RATIO (3.7-5.6); Chloride 113 mMol/L (98-107); Cholesterol 169 mg/dL (132-200); Creatinine (Component) 1.1 mg/dL (0.6-1.3); Estimated Creatinine Clearance 49.6 mL/min (>60); Glucose 97 mg/dL (74-106); HDL Cholesterol 55 mg/dL (40-60); LDL Cholesterol,Calculated 98 mg/dL (0-130); Osmolality,Calculated 288 (275-295); Potassium 3.8 mMol/L (3.4-5.1); Sodium 146 mMol/L (136-145); Thyroid Stimulating Hormone 0.88 uIU/mL (0.55-4.78); Total Protein 6.0 gm/dL (5.7-8.2); Triglycerides 79 mg/dL (30-150); eGFR 57 See Note
[2025-01-09 07:02] LABS: Albumin, Serum 3.5 gm/dL (3.4-4.8); Albumin/Globulin Ratio 1.4 (1.2-2.2); Alkaline Phosphatase 95 U/L (46-116); Calcium (Corrected) 9.3 mg/dL (8.5-10.1); Globulin 2.5 gm/dL (2.3-3.5)
[2025-01-09 07:16] LABS: Glucose Estimated Average 120 mg/dL (80-131); Hemoglobin A1C 5.8 % Hgb (4.8-6.0)
[2025-01-09] MEDS: ASPIRIN EC 81 MG TABEC PO (09:20)
[2025-01-09] MEDS: CLOPIDOGREL BISULFATE 75 MG TABLET PO (09:21)
[2025-01-09] MEDS: ACETAMINOPHEN 325 MG TABLET 650 MG PO (10:05)
--- NOTE | 2025-01-09 13:43 | ESPR_ITS ---
Documentation for date of: 01/09/25 Subjective Subjective Interval history: No acute events overnight. Patient seen and examined at bedside this AM. Patient is deaf since and was able to answer questions by reading lips. Endorsed frontal headache this morning, gave Tylenol x1, reported history of migraines in the past. Alert and oriented to self and place, not to time. No neurological deficits observed, strength 5/5 in all extremities. No echolalia observed, likely resolved. Labs and vitals were reviewed. Sodium was elevated at 146, possibly secondary to dehydration. No other lab or imaging abnormalities noted. Son last talked to patient a month ago, only recently found her altered last night. Per family, patient is not at her mental baseline. Pending MRI and echo bubble. Continue stroke protocol. Review of systems otherwise negative except what is mentioned above. Exam Vital Signs Temp Pulse Resp BP Pulse Ox O2 Del Method 98.1 F 73 18 153/80 H 98 Room Air 01/09/25 12:00 01/09/25 12:00 01/09/25 12:00 01/09/25 12:00 01/09/25 12:01/09/25 12:00 Narrative Exam Physical Exam General: Awake and in no acute distress. Conversational and non-toxic appearing. HEENT: Normocephalic, atraumatic, mucous membranes moist. Heart: Regular rate and rhythm, normal S1 and S2, no murmurs. Lungs: Clear to auscultation with no wheezing or crackles. Abdomen: Soft, nondistended, nontender, positive bowel sounds. No guarding or rebound tenderness. Neurologic: Alert and oriented x2 (oriented to self and place, not time), no gross neurological deficit, and patient able to move all 4 extremities. Extremities: No edema. Skin: No rash or ecchymoses. Objective Labs 01/10/25 04:53 01/10/25 04:53 Labs: Laboratory Results - last 24 hr 01/08/25 01/08/25 01/09/25 22:42 23:49 05:10 WBC 8.1 5.8 RBC 4.66 4.26 Hgb 13.3 12.5 Hct 41.4 38.4 MCV 89 90 MCH 28.5 29.3 MCHC 32.1 32.6 RDW Std Deviation 43.4 44.0 Plt Count 233 195 D Neut % (Auto) 67 51 Lymph % (Auto) 22 37 [place] % (Auto) 7 8 Eos % (Auto) 4 3 Baso % (Auto) 1 1 Neut # (Auto) 5.4 3.0 Lymph # (Auto) 1.8 2.1 [place] # (Auto) 0.5 0.5 Eos # (Auto) 0.3 0.2 Baso # (Auto) 0.0 0.0 Immature Gran # (Auto) 0.02 H 0.00 Absolute Nucleated RBC 0.00 0.00 Immature Gran % 0 0 Nucleated RBC % 0 0 PT 10.4 INR 0.9 APTT 27.0 Sodium 146 H 146 H Potassium 3.9 3.8 Chloride 112 H 113 H Carbon Dioxide 23.7 22.8 Anion Gap 10 10 BUN 8 L 7 L Creatinine 1.1 1.1 Estim Creat Clear Calc Not Performed. 49.6 L eGFR 57 L 57 L BUN/Creatinine Ratio 7 L 6 L Glucose [address] Glu mg/dL 120 Hemoglobin A1c 5.8 Calculated Osmolality 289 288 Calcium 10.1 8.9 Corrected Calcium 10.1 9.3 Magnesium 2.2 Total Bilirubin 0.7 0.7 AST 19 19 ALT < 7 L 8 L Alkaline Phosphatase 120 H 95 D Troponin I < 0.002 Total Protein 7.1 6.0 Albumin 4.5 3.5 D Globulin 2.6 2.5 Albumin/Globulin Ratio 1.7 1.4 Triglycerides 79 Cholesterol 169 LDL Cholesterol, Calc 98 HDL Cholesterol 55 Cholesterol/HDL Ratio 3.1 L TSH 0.88 Ur Collection Type Clean Catch Urine Color Lt-Yellow Urine Clarity Clear Urine pH 7.0 Ur Specific [place] 1.040 H Urine Protein Negative Urine Glucose (UA) Negative Urine Ketones Negative Urine Blood Negative Urine Nitrite Negative Urine Bilirubin Negative Urine Urobilinogen (Auto) Negative Ur Leukocyte Esterase Positive Urine RBC 2 Urine WBC 1 Ur Squamous Epith Cells 1 Urine Bacteria None Urine Opiates Screen Negative Urine Fentanyl Screen Negative Ur Barbiturates Screen Negative U Amphetamin/Meth Scrn Negative U Benzodiazepines Scrn Negative U Cocaine Metab Screen Negative U Marijuana (THC) Screen Negative Quality Measures Quality Measures stroke Suspected type of Stroke: Unknown at this time Tenecteplase given: Reason(s) Tenecteplase not given: Outside the time window and Stroke severity too mild (non-disabling) not given Rehab services: PT evaluation ordered VTE Prophylaxis: pharmaceutical Antithrombotic by day 2:: ordered Statin ordered: <75 y/o high intensity dose Anticoagulation ordered for A-fib or flutter (current or hx): not indicated Assessment & Plan Assessment Current Active Medications: Generic Name Dose Route Start Last Admin Trade Name Freq PRN Reason Stop Dose Admin Acetaminophen 650 mg 01/09/25 01:08 01/09/25 10:05 Acetaminophen 325 Mg Tablet PO 02/08/25 01:07 650 mg Q6H PRN Administration PAIN SCALE 1-3 (mild Aspirin 81 mg 01/09/25 09:00 01/09/25 09:20 Aspirin Ec 81 Mg Tabec PO 02/08/25 08:59 81 mg QDAY DIGNA Administration Atorvastatin Calcium 80 mg 01/09/25 21:00 Atorvastatin Calcium 20 Mg Tablet PO 02/08/25 20:59 HS DIGNA Clopidogrel Bisulfate 75 mg 01/09/25 09:00 01/09/25 09:21 Clopidogrel Bisulfate 75 Mg Tablet PO 02/08/25 08:59 75 mg QDAY DIGNA Administration Dextrose 25 ml 01/09/25 01:11 Dextrose 50%-Water Inj 50 Ml Syringe IV 02/08/25 01:10 Q15MIN PRN BG 50-70 responsive npo pt Dextrose 50 ml 01/09/25 01:11 Dextrose 50%-Water Inj 50 Ml Syringe IV 02/08/25 01:10 Q15MIN PRN BG <50 OR BG <70 & pt unresponsive Glucagon 1 mg 01/09/25 01:11 Glucagon Inj 1 Mg Vial IM Q15MIN PRN BG <70, and no IV access Insulin Human Lispro 0 unit 01/09/25 07:30 01/09/25 11:42 Insulin Lispro (Admelog) 1 Unit/0.01 Ml Unit SC 02/08/25 07:29 Not Given ACHS DIGNA Protocol Labetalol HCl 10 mg 01/09/25 01:19 Labetalol Inj 5 Mg/Ml Vial 20 Ml IVP 02/08/25 01:18 Q6HR PRN BP >200/105 and HR >75 Ondansetron HCl 4 mg 01/08/25 22:43 Ondansetron Inj 2 Mg/Ml Inj 2 Ml IVP 02/07/25 22:42 Q4HR PRN NAUSEA OR VOMITING Protocol Sennosides 1 tab 01/09/25 01:08 Senna Tablet PO 02/08/25 01:07 QDAY PRN constipation Protocol Plan Patient is a 64-year-old female with past medical history of congenital deafness, hypertension, DM2 non insulin dependent, rheumatoid arthritis who presented on 01/08 after she was found by family members for having altered mental status, admitted for stroke rule out with neurology consultation and close monitoring. #Acute encephalopathy #Concern for stroke/TIA On admission, DAVID score of 3 and on exam, presented with echolalia; otherwise neurologic exam was unremarkable. EKG showed sinus rhythm without any concerning ST changes. CT head and CTA were unremarkable. 01/09: Patient was alert and oriented x2 (oriented to self and place, but not time); was unable to tell me her but possible unable to read lips very well. Son last spoke to her a month ago and says she is not at her mental baseline. Plan: - Neurology consulted, appreciate recommendations - Continue aspirin and Plavix - Continue high intensity statin - Pending MRI - Pending echo with bubble study - Pending PT consultation - Permissive hypertension as below - Head of bed greater than 30, neurochecks every 4 - Aspiration precautions - Neurology Dr. Rodríguez consulted, appreciate recommendations #Hypertensive emergency - resolved #Hx of hypertension On admission, systolic was in the high 200s. Takes metoprolol tartrate, hydrochlorothiazide at home. Pending official med rec. Plan: - Permissive hypertension with goal systolic blood pressure 180/100 due to concern for stroke - Ordered labetolol prn if blood pressure greater than 200/105 - Continue telemetry monitoring #Hx of type 2 diabetes, non insulin dependent Hgb A1c 5.8 on 01/09/25. Pending official med rec. Plan: - Sliding scale insulin #CKD stage IIIa GFR 57 on admission. Likely secondary to diabetic nephropathy versus hypertensive nephropathy. Plan: - Avoid nephrotoxic agent - Renally dose medications - Monitor with morning labs - Replete electrolytes when needed #Congenital deafness #Rheumatoid arthritis #Asthma/COPD? Chronic medical problems Pending med rec Plan: - Resume home medications when appropriate Health Maintenance: Lines: PIV Diet: Nurse swallow screen, cardiac diet/carb consistent low Bowel: Senna as needed GI prophylaxis: Not needed DVT prophylaxis: SCD Dispo: Stroke rule out Code: Full Patient plan of care was discussed with the attending physician, Dr. Pizarro. Gema Mckee, PGY-1 Attending Provider Attestation/Addendum I have examined the patient, reviewed labs and imaging findings, discussed the case with the resident(s), and reviewed entered orders. I agree with the plan of care as outlined in this note, with these additional summaries/recommendations: Patient and patient's son seen at bedside. Patient was admitted overnight for CVA rule out. Per patient's son she told her roommate that she was going for a drive yesterday and was found later by the police in her car confused. Patient denies similar symptoms in the past. Per patient and patient's son her mentation is much improved this morning but not yet back to baseline. She is currently alert and oriented x 2. CT head without contrast and CTA head and neck relatively within normal limits. Continue dual antiplatelet therapy. Continue statin. Target LDL less than 70. Echocardiogram and PT pending. MRI brain pending. In-house neurology consulted, recommendations appreciated. No identifiable etiology for encephalopathy from metabolic or infectious causes at this time. Etiology possibly TIA versus CVA versus elevated blood pressure. Patient's renal function appears at baseline and continue to monitor. We will resume home antihypertensives once out of permissive hypertension window. Blood pressure was significantly elevated in the emergency room and suspected hypertensive emergency. Minimal hypernatremia noted and patient encouraged to increase her oral intake. Patient and family updated on the plan and agreement. All questions answered to satisfaction. Please see residents note for additional details of management. Dr. Moira MD
[2025-01-09] MEDS: ACETAMINOPHEN 325 MG TABLET PO (14:06)
[2025-01-09] MEDS: METOCLOPRAMIDE INJ 5 MG/ML VIAL 2 ML 10 MG IVP (14:06)
[2025-01-09] MEDS: ATORVASTATIN CALCIUM 20 MG TABLET 80 MG PO (20:32)
[2025-01-10] VITALS (8 sets, daily range): BP systolic 140–159; BP diastolic 72–98; PULSE 70–96; RESP 12–24; TEMP 36.1–36.9; O2SAT 95–98; BMI 24.3
--- NOTE | 2025-01-10 | XR_ITS ---
Examinations: MRI Brain without intravenous contrast. MRI brain with intravenous contrast MRA brain with intravenous contrast. MRA brain without intravenous contrast MRA neck with intravenous contrast Date and time of exam: January 10, 2025 0938 hours INDICATIONS: Altered mental status, stroke alert January 08, 2025, onset focal neurologic deficit Technique: Multiple axial and sagittal images of the brain have been obtained Siemens high-resolution 1.5 [place] short bore scanner is utilized. Sagittal sections, T1-weighted, TR 500, TE 14 Axial sections proton density and T2-weighted, TR 3,000, TE 34, TR 3,000, TE 91 Inversion recovery axial images, TR 9,260, TE 111, TI 2,500 Diffusion weighted images, axial sections, TR 4,800, TE 128, B value 1,000 Axial sections, ADC map, TR 4,800, TE 128. Contrast images have been obtained post intravenous 19 cc Gadolinium. T1-weighted axial and coronal images post contrast have been obtained. Angiographic images of neck and brain are obtained pre and post contrast. 3-D post processing performed, including brain, extracranial neck arterial maximum intensity projections Findings: Sellaturcica is not enlarged. The optic chiasm and infundibular stalk are not remarkable. Prepontine and interpeduncular cisterns are not enlarged. No localized enlargement of the medulla or rossy. Fourth ventricle and cerebellar tonsils normal in position. Subacute hemorrhage is not seen. Fourth ventricle is midline. Mass in the cerebellopontine angle region is not evident. 7th and 8th nerve complexes exhibits symmetry. Globes are symmetrical with no retro-orbital mass. Increased white matter signal evident, scattered punctate foci increased signal in the white matter Diffusion-weighted images demonstrateno focus of restricted diffusion. Mass-effect upon the ventricular system is not identified. Abnormal contrast enhancement is not seen. MRA brain carotid images no carotid stenoses, no cerebral large vessel arterial occlusions, left vertebral artery in the neck appears diminished in caliber on the 3-D reconstructions Impression: Negative for acute hemorrhage mass effect or midline shift No acute infarct Scattered punctate foci increased signal in the white matter, differential would include chronic microvascular white matter change, demyelinating disease Left vertebral artery neck is diminished in caliber in its proximal portion, recommend correlation with carotid vertebral Doppler sonography follow-up
[2025-01-10] MEDS: ACETAMINOPHEN 325 MG TABLET 650 MG PO (00:06)
--- NOTE | 2025-01-10 05:59 | PD.RESCONSUL ---
HPI Data of Consult Requesting Physician: Riley Allison MD Admitting Provider: Riley Allison MD Attending Provider: Riley Allison MD Primary Care Provider: Micheal Sr MD Consult Narrative History of present illness: Ms. Meza is a 64 y/o female with PMH of hypertension, [id number] type 2 diabetes, hyperlipidemia, hard of hearing, rheumatoid arthritis who presented to the ED on 01/08 with AMS. Patient had slower-paced gait, slow to respond, and generalized weakness s/p being pulled over by [place] [employer] x approximately 2 hours. Patient stated that she needed to go for a drive, left the house, and ended up in [place]. Teleneuro consult note reports: intermittent clear speech with intact prosody, admixed with episodes of echolalia Patient has not had a similar episode in the past. Patient lives with stepfather in [place], is . Does not work currently and denies any smoking tobacco, alcohol or illicit drug use. In the ED, patient presented in hypertensive emergency blood pressure 202/94, heart rate 68, respiratory rate 16, afebrile satting 96 on room air. Labs largely unremarkable, BUN of 8, creatinine 1.1 with EGFR of 57, urinalysis does not show any sign of infection. EKG shows sinus rhythm without any concerning ST changes, head CT is negative for any acute findings and head and neck CTA does not show any significant arterial stenosis or cerebral arterial occlusion/thrombus. Stroke alert was initiated in the ED with NIHSS score of 2. Per teleneuro: Bolus with Clopidogrel 300 mg bolus x1 and initiate dual antiplatelet therapy with Aspirin 81 mg daily and Clopidogrel 75 mg daily Patient evaluated at bedside. She denies any headache, chest pain, nausea, vomiting, acute changes in vision, weakness, paresthesias. The last thing that she remembers is going to the store for dog and cat food, then she remembers driving around in circles with the municipal bond trader trying to communicate with her, then waking up in the hospital. She denies previous similar events. She denies getting lost in familiar areas. She lives with her [id number]. She reports that she lives a fairly active lifestyle, including taking care of her dogs, chickens, garden. cc:: cc: Riley Allison MD Review of Systems Review of Systems Narrative Review of Systems: 14 point ROS negative other than HPI Exam Vital Signs Temp Pulse Resp BP Pulse Ox O2 Del Method 98.0 F 70 19 150/72 H 97 Room Air 01/10/25 04:00 01/10/25 04:00 01/10/25 04:00 01/10/25 04:00 01/10/25 04:00 01/10/25 04:00 Narrative Exam General: No acute distress, well nourished Eye: PERRL, EOMI, normal conjunctiva, no scleral icterus HENT: Normocephalic, atraumatic, hearing intact to conversation at normal volume, moist oral mucosa Neck: Supple, non-tender, no JVD, no lymphadenopathy Lungs: Non-labored respirations, symmetric chest rise Heart: Peripheral pulses intact bilaterally Abdomen: Soft, non-tender, non-distended Musculoskeletal: Normal range of motion and strength Skin: Skin is warm, dry, no rashes or lesions. Psychiatric: Cooperative, appropriate mood and affect Neurologic: Mental status: Orientation: AOx2 Communication: Patient is cooperative and can follow simple instructions Language: Speech fluent, normal rate and volume, comprehension intact Cranial nerves: CN II: Visual stevenson intact CN III: Pupils equal, round, and reactive to light CN III, IV, : No gaze deviation, no nystagmus Horizontal pursuit: intact Vertical pursuit: intact Ptosis: none CN V: Facial sensation to light touch intact bilaterally at the forehead, cheeks, and jaw line CN VII: Face symmetric, no facial droop appreciated CN VIII: Able to hear and respond to conversation at normal volume, intact to finger rub CN IX, X: Palate elevation symmetric, uvula midline CN XI: Head turn and shoulder shrug strong, symmetric bilaterally CN XII: Normal tongue protrusion without deviation, no fasciculations Motor: Normal bulk and tone No atrophy No abnormal movements or fasciculations Muscle strength: Shoulder abduction: R 5/5 L 5/5 Elbow flexion: R 5/5 L 5/5 Elbow extension: R 5/5 L 5/5 Hip flexion: R 5/5 L 5/5 Hip extension: R 5/5 L 5/5 Knee flexion: R 5/5 L 5/5 Knee extension: R 5/5 L 5/5 Sensory: RUE: Light touch intact LUE: Light touch intact RLE: Light touch intact LLE: Light touch intact Reflexes: Biceps (C5-6): R 2+ L 2+ Brachioradialis (C5-6): R 2+ L 2+ Triceps (C7-8): R 2+ L 2+ Patellae (L3-4): R 2+ L 2+ Achilles (S1-2):R 2+ L 2+ No clonus Plantar reflex downgoing bilaterally Cerebellum: RUE: No dysmetria (finger to nose), no dysdiadochokinesia (rapid alternating movements) LUE: No dysmetria (finger to nose), no dysdiadochokinesia (rapid alternating movements) RLE: No dysmetria (heel to may) LLE: No dysmetria (heel to may) Results Labs 01/10/25 04:53 01/10/25 04:53 Labs: Short CBC 01/09/25 Range/Units 05:10 WBC 5.8 (3.6-11.0) Thou/mm3 Hgb 12.5 (12.0-16.0) g/dL Hct 38.4 (36.0-46.0) % Plt Count 195 D (140-440) Thou/mm3 BMP 01/09/25 05:10 Sodium 146 H Potassium 3.8 Chloride 113 H Carbon Dioxide 22.8 BUN 7 L Creatinine 1.1 Glucose 97 Calcium 8.9 Liver Function 01/09/25 Range/Units 05:10 Total Bilirubin 0.7 (0.3-1.2) mg/dL AST 19 (0-34) U/L ALT 8 L (10-49) U/L Alkaline Phosphatase 95 D (46-116) U/L Albumin 3.5 D (3.4-4.8) gm/dL Quality Measures Quality Measures stroke Suspected type of Stroke: Unknown at this time Tenecteplase given: Reason(s) Tenecteplase not given: Outside the time window and Stroke severity too mild (non-disabling) not given Rehab services: PT evaluation ordered VTE Prophylaxis: not indicated Antithrombotic by day 2:: not indicated (describe) Statin ordered: <75 y/o high intensity dose Anticoagulation ordered for A-fib or flutter (current or hx): not indicated Medications Home Medications and Allergies Home Medications ?Medication ?Instructions ?Recorded ?Confirmed ?Type Albuterol Sulfate HFA (INHALER) 2 puff inhalation Q6HR #0 02/08/14 01/09/25 History (PROVENTIL HFA (INHALER)) inhalations Albuterol Sulfate HFA (INHALER) 2 puff inhalation Q6HR #0 02/08/14 01/09/25 History (PROVENTIL HFA (INHALER)) inhalations Cyclobenzaprine * (FLEXERIL *) 5 mg PO TID #0 tabs 02/08/14 01/09/25 History Fluticasone/Salmeterol DISKUS * 1 puff inhalation BID #0 puffs 02/08/14 01/09/25 History (ADVAIR DISKUS 250/50 *) hydrochlorothiazide 25 mg tablet 25 mg PO QAM #0 tabs 02/08/14 01/09/25 History ipratropium bromide 0.02 % 0.5 mg inhalation Q6HR ##0 02/08/14 01/09/25 History solution for inhalation meclizine 25 mg tablet (Antivert) 25 mg PO QDAY #0 tabs 02/08/14 01/09/25 History metoprolol tartrate 25 mg tablet 25 mg PO BID #0 tabs 02/08/14 01/09/25 History prednisone 20 mg tablet 20 mg PO QAM #0 tabs 02/08/14 01/09/25 History aspirin 81 mg chewable tablet 81 mg PO QDAY ##0 02/22/15 01/09/25 History Allergies Allergy/AdvReac Type Severity Reaction Status Date / Time cephalexin Allergy Severe RESPIRATORY Verified 01/08/25 22:35 DISTRESS Penicillins Allergy Severe RESPIRATORY Verified 01/08/25 22:35 DISTRESS adhesive tape Allergy Mild BURN SKIN Verified 01/08/25 22:35 bacitracin Allergy Mild SKIN BURN Verified 01/08/25 22:35 neomycin Allergy Mild SKIN BURN Verified 01/08/25 22:35 polymyxin B Allergy Mild SKIN BURN Verified 01/08/25 22:35 Visit Medications Acetaminophen (Acetaminophen 325 Mg Tablet) 650 mg PO Q6H PRN PRN Reason: PAIN SCALE 1-3 (mild Stop: 02/08/25 01:07 Last Admin: 01/10/25 00:06 Dose: 650 mg Aspirin (Aspirin Ec 81 Mg Tabec) 81 mg PO QDAY DIGNA Stop: 02/08/25 08:59 Last Admin: 01/09/25 09:20 Dose: 81 mg Atorvastatin Calcium (Atorvastatin Calcium 20 Mg Tablet) 80 mg PO HS DIGNA Stop: 02/08/25 20:59 Last Admin: 01/09/25 20:32 Dose: 80 mg Clopidogrel Bisulfate (Clopidogrel Bisulfate 75 Mg Tablet) 75 mg PO QDAY DIGNA Stop: 02/08/25 08:59 Last Admin: 01/09/25 09:21 Dose: 75 mg Dextrose (Dextrose 50%-Water Inj 50 Ml Syringe) 25 ml IV Q15MIN PRN PRN Reason: BG 50-70 responsive npo pt Stop: 02/08/25 01:10 Dextrose (Dextrose 50%-Water Inj 50 Ml Syringe) 50 ml IV Q15MIN PRN PRN Reason: BG <50 OR BG <70 & pt unresponsive Stop: 02/08/25 01:10 Glucagon (Glucagon Inj 1 Mg Vial) 1 mg IM Q15MIN PRN PRN Reason: BG <70, and no IV access Insulin Human Lispro (Insulin Lispro (Admelog) 1 Unit/0.01 Ml Unit) 0 unit SC [facility]; Protocol Stop: 02/08/25 07:29 Last Admin: 01/09/25 21:00 Dose: Not Given Labetalol HCl (Labetalol Inj 5 Mg/Ml Vial 20 Ml) 10 mg IVP Q6HR PRN PRN Reason: BP >200/105 and HR >75 Stop: 02/08/25 01:18 Ondansetron HCl (Ondansetron Inj 2 Mg/Ml Inj 2 Ml) 4 mg IVP Q4HR PRN; Protocol PRN Reason: NAUSEA OR VOMITING Stop: 02/07/25 22:42 Sennosides (Senna Tablet) 1 tab PO QDAY PRN; Protocol PRN Reason: constipation Stop: 02/08/25 01:07 Discontinued Medications Acetaminophen (Acetaminophen 325 Mg Tablet) 325 mg PO X1 ONE Stop: 01/09/25 13:34 Last Admin: 01/09/25 14:06 Dose: 325 mg Aspirin (Aspirin 325 Mg Tablet) 325 mg PO X1 ONE Stop: 01/08/25 23:26 Last Admin: 01/08/25 23:53 Dose: 325 mg Atorvastatin Calcium (Atorvastatin Calcium 20 Mg Tablet) 40 mg PO HS [facility] Stop: 02/08/25 20:59 Clopidogrel Bisulfate (Clopidogrel Bisulfate 75 Mg Tablet) 300 mg PO X1 ONE Stop: 01/08/25 23:26 Last Admin: 01/08/25 23:53 Dose: 300 mg Labetalol HCl (Labetalol Inj 5 Mg/Ml Vial 20 Ml) 10 mg IVP Q15M PRN PRN Reason: HYPER Labetalol HCl (Labetalol Inj 5 Mg/Ml Vial 20 Ml) 20 mg IVP X1 ONE Stop: 01/08/25 22:52 Last Admin: 01/08/25 23:25 Dose: Not Given Labetalol HCl (Labetalol Inj 5 Mg/Ml Vial 20 Ml) 10 mg IVP Q15M PRN PRN Reason: BP >200/105 and HR >75 Metoclopramide HCl (Metoclopramide Inj 5 Mg/Ml Vial 2 Ml) 10 mg IVP X1 ONE; Protocol Stop: 01/09/25 13:34 Last Admin: 01/09/25 14:06 Dose: 10 mg Assessment & Plan Plan #Altered mental status #Hypertensive emergency #TIA #Transient global amnesia Hx stroke/TIA: none Hx afib: none Smoking hx: none Initial symptoms: AMS, slow gait, slow to respond, generalized weakness, echolalia LKAW: unknown Initial NIHSS: 2 Inital BP: 202/94 EKG: NSR HR 74, QTc 435 Initial glucose: 97 UDS: negative A1C: 5.8 Lipids: Triglycerides 79, cholesterol 169, LDL 98, HDL 55 TSH: 0.88 CT head w/o: negative for acute hemorrhage CTA head/neck w/: negative for LVO, arterial stenosis MRI/MRA w/ and w/o: No acute hemorrhage or infarct. Scattered punctate foci indicative of chronic microvascular white matter changes. Left vertebral artery diminished proximally. TTE: negative bubble, no cardiac thrombi, LVEF 55-60%, grade 1 diastolic dysfunction Meds given: ASA 81 mg, Clopidogrel 75 mg, atorvastatin 80 mg ABCD2 score (risk of stroke after suspected TIA): 2 (low risk) ASCVD: 10.9% risk of CV events in next 10 years -- rec high-intensity statin DDX: small vessel (lacunar) disease TIA, dementia, delirium, catatonia, transient global amnesia PT rec: home with home health Plan: - ASA 81 mg daily - High intensity statin #Hx of type 2 diabetes, non insulin dependent Hgb A1c 5.8 #CKD stage IIIa #Rheumatoid arthritis Plan: - Management per primary Plan discussed with Dr. Marcos Szymanski, PGY1 Attending Provider Attestation/Addendum Patient was seen and examined at the bedside and I agreed with resident's findings, assessment and plan of care. Presentation is likely TIA/TGA, reassured her regarding the negative workup and continue asa 81 mg and statin. Stable for D/c home tomorrow and hold driving until neurology fu in 2 weeks.
[2025-01-10 06:14] LABS: Basophils # (Auto) 0.0 Thou/mm3 (0.0-0.2); Basophils % (Auto) 1 % (0-2.5); Eosinophils # (Auto) 0.4 Thou/mm3 (0.0-0.5); Eosinophils % (Auto) 8 % (0-10); Hematocrit 38.6 % (36.0-46.0); Hemoglobin 12.9 g/dL (12.0-16.0); Immature Granulocytes Auto 0.01 Thou/mm3 (0.00-0.00); Lymphocytes # (Auto) 1.8 Thou/mm3 (1.0-4.8); Lymphocytes % (Auto) 32 % (10-50); Mean Corpuscular HGB Conc 33.4 g/dl (31.0-37.0); Mean Corpuscular Hemoglobin 29.5 pg (25.0-35.0); Mean Corpuscular Volume 88 fL (80-100); Monocytes # (Auto) 0.4 Thou/mm3 (0.0-0.8); Monocytes % (Auto) 8 % (0-12); Neutrophils # (Auto) 2.8 Thou/mm3 (1.8-7.7); Neutrophils % (Auto) 51 % (37-80); Nucleated Red Blood Cell # 0.00 Thou/mm3 (0.00-0.00); Nucleated Red Blood Cell % 0 /100 WBC (0); Platelet Count 205 Thou/mm3 (140-440); RDW Standard Deviation 43.4 fL (36.4-46.3); Red Blood Count 4.38 Miln/mm3 (4.00-5.20); White Blood Count 5.5 Thou/mm3 (3.6-11.0)
[2025-01-10 06:45] LABS: Alanine Aminotransferase 9 U/L (10-49); Albumin, Serum 3.6 gm/dL (3.4-4.8); Albumin/Globulin Ratio 1.6 (1.2-2.2); Alkaline Phosphatase 98 U/L (46-116); Anion Gap 9 (7-16); Aspartate Amino Transferase 17 U/L (0-34); BUN/Creatinine Ratio 9 Ratio (12-20); Bilirubin,Total 1.2 mg/dL (0.3-1.2); Blood Urea Nitrogen 10 mg/dL (9-23); Calcium 8.9 mg/dL (8.3-10.6); Calcium (Corrected) 9.2 mg/dL (8.5-10.1); Carbon Dioxide 24.7 mMol/L (20.0-31.0); Chloride 112 mMol/L (98-107); Creatinine (Component) 1.1 mg/dL (0.6-1.3); Estimated Creatinine Clearance 49.6 mL/min (>60); Globulin 2.3 gm/dL (2.3-3.5); Glucose 94 mg/dL (74-106); Magnesium 1.7 mg/dL (1.6-2.6); Osmolality,Calculated 289 (275-295); Phosphorous 3.6 mg/dL (2.4-5.1); Potassium 3.8 mMol/L (3.4-5.1); Sodium 146 mMol/L (136-145); Total Protein 5.9 gm/dL (5.7-8.2); eGFR 57 See Note
[2025-01-10] MEDS: CLOPIDOGREL BISULFATE 75 MG TABLET PO (08:21)
[2025-01-10] MEDS: ASPIRIN EC 81 MG TABEC PO (08:21)
--- NOTE | 2025-01-10 10:00 | PC.SS ---
Rounding: Pending MRI, DC plan Home with HH
[2025-01-10] MEDS: METOPROLOL TARTRATE 25 MG TABLET PO ×2 (10:31→21:13)
[2025-01-10] MEDS: Magnesium Sulfate 2 GM Ivpb 2 GM/50 ML BAG IV (10:31)
--- NOTE | 2025-01-10 11:16 | ESPR_ITS ---
Documentation for date of: 01/10/25 No overnight events. Patient is alert and orientated X 3. Motor function extremities intact upper and lower. Home health. Resumed Metoprolol tartrate 25 mg BID. D/C hydrochlorothiazide upon discharge. MRI: negative for acute infarct. Negative for acute hemorrhage mass effect or midline shift Scattered punctate foci increased signal in the white matter, differential would include chronic microvascular white matter change, demyelinating disease. White matter changes likely secondary to chronic aging changes. MRI noted: Left vertebral artery neck is diminished in caliber in its proximal portion -->outpatient follow up. Patient would benefit from FORTINO/ARB given history of HTN, DM type 2, and now TIA. Pending Neuro Recs. Rowena Rodriguez PGY 2 Subjective Subjective Interval history: No acute events overnight. Patient seen and examined at bedside this AM. MRI negative for acute infarct, acute hemorrhage, mass effect, or midline shift, but suggested evidence of demyelinating disease. Recommended carotid Doppler as left vertebral artery appears diminished however CTA head and neck showed no occlusion or diminishing. Will consult neurology if they would like follow-up carotid Doppler. Echo bubble study negative for PFO or thrombi, EF 55 to 60% with grade 1 diastolic dysfunction. PT recommends home with home health. Patient remains hypertensive, will restart home metoprolol tartrate for now. Will restart other home hypertensives if BP continues to be elevated. Review of systems otherwise negative except what is mentioned above. Exam Vital Signs Temp Pulse Resp BP Pulse Ox O2 Del Method 97.7 F 82 17 158/98 H 98 Room Air 01/10/25 08:00 01/10/25 10:31 01/10/25 08:00 01/10/25 10:31 01/10/25 08:00 01/10/25 08:00 Narrative Exam Physical Exam General: Awake and in no acute distress. Conversational and non-toxic appearing. HEENT: Normocephalic, atraumatic, mucous membranes moist. Heart: Regular rate and rhythm, normal S1 and S2, no murmurs. Lungs: Clear to auscultation with no wheezing or crackles. Abdomen: Soft, nondistended, nontender, positive bowel sounds. No guarding or rebound tenderness. Neurologic: Alert and oriented x2 (oriented to self and place, not time), no gross neurological deficit, and patient able to move all 4 extremities. Extremities: No edema. Skin: No rash or ecchymoses. Objective Labs 01/11/25 04:46 01/11/25 04:46 Labs: Laboratory Results - last 24 hr 01/10/25 04:53 WBC 5.5 RBC 4.38 Hgb 12.9 Hct 38.6 MCV 88 MCH 29.5 MCHC 33.4 RDW Std Deviation 43.4 Plt Count 205 Neut % (Auto) 51 Lymph % (Auto) 32 [place] % (Auto) 8 Eos % (Auto) 8 Baso % (Auto) 1 Neut # (Auto) 2.8 Lymph # (Auto) 1.8 [place] # (Auto) 0.4 Eos # (Auto) 0.4 Baso # (Auto) 0.0 Immature Gran # (Auto) 0.01 H Absolute Nucleated RBC 0.00 Immature Gran % 0 Nucleated RBC % 0 Sodium 146 H Potassium 3.8 Chloride 112 H Carbon Dioxide 24.7 Anion Gap 9 BUN 10 Creatinine 1.1 Estim Creat Clear Calc 49.6 L eGFR 57 L BUN/Creatinine Ratio 9 L Glucose 94 Calculated Osmolality 289 Calcium 8.9 Corrected Calcium 9.2 Phosphorus 3.6 Magnesium 1.7 Total Bilirubin 1.2 D AST 17 ALT 9 L Alkaline Phosphatase 98 Total Protein 5.9 Albumin 3.6 Globulin 2.3 Albumin/Globulin Ratio 1.6 Quality Measures Quality Measures stroke Suspected type of Stroke: Unknown at this time Tenecteplase given: Reason(s) Tenecteplase not given: Outside the time window and Stroke severity too mild (non-disabling) not given Rehab services: PT evaluation ordered VTE Prophylaxis: pharmaceutical Antithrombotic by day 2:: ordered Statin ordered: <75 y/o high intensity dose Anticoagulation ordered for A-fib or flutter (current or hx): ordered Assessment & Plan Assessment Current Active Medications: Generic Name Dose Route Start Last Admin Trade Name Freq PRN Reason Stop Dose Admin Acetaminophen 650 mg 01/09/25 01:08 01/10/25 00:06 Acetaminophen 325 Mg Tablet PO 02/08/25 01:07 650 mg Q6H PRN Administration PAIN SCALE 1-3 (mild Aspirin 81 mg 01/09/25 09:00 01/10/25 08:21 Aspirin Ec 81 Mg Tabec PO 02/08/25 08:59 81 mg QDAY DIGNA Administration Atorvastatin Calcium 80 mg 01/09/25 21:00 01/09/25 20:32 Atorvastatin Calcium 20 Mg Tablet PO 02/08/25 20:59 80 mg HS DIGNA Administration Clopidogrel Bisulfate 75 mg 01/09/25 09:00 01/10/25 08:21 Clopidogrel Bisulfate 75 Mg Tablet PO 02/08/25 08:59 75 mg QDAY DIGNA Administration Dextrose 25 ml 01/09/25 01:11 Dextrose 50%-Water Inj 50 Ml Syringe IV 02/08/25 01:10 Q15MIN PRN BG 50-70 responsive npo pt Dextrose 50 ml 01/09/25 01:11 Dextrose 50%-Water Inj 50 Ml Syringe IV 02/08/25 01:10 Q15MIN PRN BG <50 OR BG <70 & pt unresponsive Glucagon 1 mg 01/09/25 01:11 Glucagon Inj 1 Mg Vial IM Q15MIN PRN BG <70, and no IV access Insulin Human Lispro 0 unit 01/09/25 07:30 01/10/25 07:16 Insulin Lispro (Admelog) 1 Unit/0.01 Ml Unit SC 02/08/25 07:29 Not Given ACHS DIGNA Protocol Labetalol HCl 10 mg 01/09/25 01:19 Labetalol Inj 5 Mg/Ml Vial 20 Ml IVP 02/08/25 01:18 Q6HR PRN BP >200/105 and HR >75 Metoprolol Tartrate 25 mg 01/10/25 09:00 01/10/25 10:31 Metoprolol Tartrate 25 Mg Tablet PO 02/09/25 08:59 25 mg BID DIGNA Administration Ondansetron HCl 4 mg 01/08/25 22:43 Ondansetron Inj 2 Mg/Ml Inj 2 Ml IVP 02/07/25 22:42 Q4HR PRN NAUSEA OR VOMITING Protocol Sennosides 1 tab 01/09/25 01:08 Senna Tablet PO 02/08/25 01:07 QDAY PRN constipation Protocol Plan Patient is a 64-year-old female with past medical history of congenital deafness, hypertension, DM2 non insulin dependent, rheumatoid arthritis who presented on 01/08 after she was found by family members for having altered mental status, admitted for stroke rule out with neurology consultation and close monitoring. #Acute encephalopathy, improved #Possible TIA #Stroke - ruled out #Demyelinating disease On admission, DAVID score of 3 and on exam, presented with echolalia; otherwise neurologic exam was unremarkable. EKG showed sinus rhythm without any concerning ST changes. CT head and CTA were unremarkable. UA was positive for leukocyte esterase however did not show signs of infection. Chest x-ray was negative for pneumonia. No identifiable etiology for encephalopathy from metabolic or infectious causes at this time. Etiology possibly TIA versus CVA versus elevated blood pressure. 01/09: Patient was alert and oriented x2 (oriented to self and place, but not time); was unable to tell me her but possible unable to read lips very well. Son last spoke to her a month ago and says she is not at her mental baseline. 01/10: MRI negative for acute infarct, acute hemorrhage, mass effect, or midline shift. Showed scattered foci possibly suggesting chronic microvascular white matter change or demyelinating disease. Recommended carotid Doppler as left vertebral artery appears diminished however CTA head and neck showed no occlusion or diminishing. Will consult neurology. Echo bubble study negative for PFO or thrombi, EF 55 to 60% with grade 1 diastolic dysfunction. PT recommends home with home health. ABCD score: 3 points (low risk for stroke after suspected TIA) ASCVD score: 5.8% risk, mod-intense statin recommended Plan: - Continue aspirin and Plavix - Continue atorvastatin 80 mg daily - Neurology Dr. Rodríguez consulted, appreciate recommendations #Hypertensive emergency - resolved #Hx of hypertension On admission, systolic was in the high 200s. Takes metoprolol tartrate, hydrochlorothiazide at home. Plan: - Restarted on home dose metoprolol tartrate - Consider restarting other home hypertensive medications - Ordered labetolol prn if blood pressure greater than 200/105 - Continue telemetry monitoring #Hx of type 2 diabetes, non insulin dependent Hgb A1c 5.8 on 01/09/25. Plan: - Sliding scale insulin #CKD stage IIIa GFR 57 on admission. Likely secondary to diabetic nephropathy versus hypertensive nephropathy. Plan: - Avoid nephrotoxic agent - Renally dose medications - Monitor with morning labs - Replete electrolytes when needed #Congenital deafness #Rheumatoid arthritis #Asthma/COPD? Chronic medical problems Plan: - Resume home medications when appropriate Health Maintenance: Lines: PIV Diet: Nurse swallow screen, cardiac diet/carb consistent low Bowel: Senna as needed GI prophylaxis: Not needed DVT prophylaxis: SCD Dispo: Stroke rule out Code: Full Patient plan of care was discussed with the resident, Dr. Rodriguez, and attending physician, Dr. Pizarro. Gema Mckee, PGY-1 - The patient's plan was discussed with attending Dr. Pricilla Rodriguez MD PGY2 Internal Medicine Attending Provider Attestation/Addendum I have examined the patient, reviewed labs and imaging findings, discussed the case with the resident(s), and reviewed entered orders. I agree with the plan of care as outlined in this note, with these additional summaries/recommendations: Patient seen at bedside. No acute overnight events. Patient was admitted for CVA rule out. CT head without contrast and CTA head and neck relatively within normal limits. Continue dual antiplatelet therapy. Continue statin. Target LDL less than 70. Echocardiogram showed negative bubble study and EF 55-60%. PT recommends home health when medically cleared for discharge. MRI brain pending and will be completed today. In-house neurology consulted, recommendations appreciated. No identifiable etiology for encephalopathy from metabolic or infectious causes at this time. Etiology possibly TIA versus CVA versus elevated blood pressure. Patient's renal function appears at baseline and continue to monitor. Resume home antihypertensives. Blood pressure was significantly elevated in the emergency room and suspected hypertensive emergency. Minimal hypernatremia noted and patient encouraged to increase her oral intake. Patient and family updated on the plan and agreement. All questions answered to satisfaction. Please see residents note for additional details of management. Dr. Moira MD
--- NOTE | 2025-01-10 16:10 | PC.SS ---
Rosanne Meza is a 64-year-old female admitted to [facility] for Stroke R/O. SS conducted bedside contact with the patient to complete initial assessment and to discuss discharge planning. Role and reason explained. Patient confirmed demographic information. Patient identifies her Son Kirs [phone] as her surrogate decision maker. Pt states she is able to complete all ADL?s independently. No need for any source of DME. Pts PCP is Dr. Sr. Pharmacy of choice is [facility]. Discharge options discussed and the pt wishes to return home.? Family will provide transportation upon DC. No further intervention required at this time, social worker masters would be available to address any further concerns. DC Plan: Home Contact: SonKris Address: Confirmed on face sheet PCP: Remberto
[2025-01-10] MEDS: ATORVASTATIN CALCIUM 20 MG TABLET 80 MG PO (21:13)
[2025-01-11] VITALS: BP 131/84; PULSE 64; PULSE 68; RESP 19; TEMP 36.3; O2SAT 97
[2025-01-11 04:00] VITALS: BP 134/67; PULSE 77; PULSE 88; RESP 19; TEMP 36.6; O2SAT 95
[2025-01-11 05:46] VITALS: BMI 23.8
[2025-01-11 06:07] LABS: Basophils # (Auto) 0.0 Thou/mm3 (0.0-0.2); Basophils % (Auto) 1 % (0-2.5); Eosinophils # (Auto) 0.2 Thou/mm3 (0.0-0.5); Eosinophils % (Auto) 3 % (0-10); Hematocrit 42.0 % (36.0-46.0); Hemoglobin 13.8 g/dL (12.0-16.0); Immature Granulocytes Auto 0.00 Thou/mm3 (0.00-0.00); Lymphocytes # (Auto) 1.9 Thou/mm3 (1.0-4.8); Lymphocytes % (Auto) 29 % (10-50); Mean Corpuscular HGB Conc 32.9 g/dl (31.0-37.0); Mean Corpuscular Hemoglobin 29.2 pg (25.0-35.0); Mean Corpuscular Volume 89 fL (80-100); Monocytes # (Auto) 0.6 Thou/mm3 (0.0-0.8); Monocytes % (Auto) 9 % (0-12); Neutrophils # (Auto) 3.7 Thou/mm3 (1.8-7.7); Neutrophils % (Auto) 58 % (37-80); Nucleated Red Blood Cell # 0.00 Thou/mm3 (0.00-0.00); Nucleated Red Blood Cell % 0 /100 WBC (0); Platelet Count 226 Thou/mm3 (140-440); RDW Standard Deviation 43.9 fL (36.4-46.3); Red Blood Count 4.72 Miln/mm3 (4.00-5.20); White Blood Count 6.4 Thou/mm3 (3.6-11.0)
[2025-01-11 06:43] LABS: Alanine Aminotransferase 8 U/L (10-49); Albumin, Serum 3.9 gm/dL (3.4-4.8); Albumin/Globulin Ratio 1.5 (1.2-2.2); Alkaline Phosphatase 106 U/L (46-116); Anion Gap 9 (7-16); Aspartate Amino Transferase 17 U/L (0-34); BUN/Creatinine Ratio 10 Ratio (12-20); Bilirubin,Total 1.2 mg/dL (0.3-1.2); Blood Urea Nitrogen 11 mg/dL (9-23); Calcium 9.6 mg/dL (8.3-10.6); Calcium (Corrected) 9.7 mg/dL (8.5-10.1); Carbon Dioxide 25.6 mMol/L (20.0-31.0); Chloride 110 mMol/L (98-107); Creatinine (Component) 1.1 mg/dL (0.6-1.3); Estimated Creatinine Clearance 49.6 mL/min (>60); Globulin 2.6 gm/dL (2.3-3.5); Glucose 95 mg/dL (74-106); Magnesium 2.0 mg/dL (1.6-2.6); Osmolality,Calculated 288 (275-295); Phosphorous 3.7 mg/dL (2.4-5.1); Potassium 4.1 mMol/L (3.4-5.1); Sodium 145 mMol/L (136-145); Total Protein 6.5 gm/dL (5.7-8.2); eGFR 57 See Note
[2025-01-11 08:00] VITALS: BP 170/94; PULSE 70; PULSE 80; RESP 24; TEMP 36.7; O2SAT 98
[2025-01-11 08:33] VITALS: BP 170/94; PULSE 80
[2025-01-11] MEDS: ASPIRIN EC 81 MG TABEC PO (08:33)
[2025-01-11] MEDS: CLOPIDOGREL BISULFATE 75 MG TABLET PO (08:33)
[2025-01-11] MEDS: METOPROLOL TARTRATE 25 MG TABLET PO (08:33)
[2025-01-11] MEDS: ACETAMINOPHEN 325 MG TABLET 650 MG PO (08:33)
--- NOTE | 2025-01-11 11:36 | PC.NURSE ---
Discharge pending transportation from son.
--- NOTE | 2025-01-11 11:45 | ESDS_ITS ---
Planned Discharge Date 01/11/25 DS: Providers Provider Date of admission: 01/09/25 01:08 Primary care physician: Micheal Sr MD Admitting Provider: Riley Allison MD Attending Provider on Admission: Riley Allison MD Consults: 01/08/25 22:43 Consult to Neurology / Tele-Neurology Routine Comment: Consulting Provider: [facility] 01/09/25 01:11 Consult to Neurology / Tele-Neurology Routine Comment: Stroke r/o Consulting Provider: Bill Rodríguez 01/09/25 01:35 Referral Speech Therapy Routine Comment: 01/09/25 08:00 Referral Physical Therapy Routine Comment: Physician Instructions: 01/09/25 08:15 Referral - FISHING [employer]ESSEL CAPTAIN Director Weights And Measures Routine Comment: petra Harden Attending Provider on DC: Riley Allison MD Discharging Provider: Gema Mckee, DS: Diagnosis Problem List Completed Was Problem List Reviewed/Reconciled?: Yes Hospital Course Hospital Course Hospital course: Summary: Patient is a 64-year-old female with past medical history of congenital deafness, hypertension, DM2 non insulin dependent, rheumatoid arthritis who presented on 01/08 after she was found by family members for having altered mental status, admitted for stroke rule out with neurology consultation and close monitoring. ED Course: Vitals: BP 202/94, HR 68, RR 16, afebrile, satting 96 on room air Labs: Largely unremarkable, BUN 8, creatinine 1.1 with EGFR of 57, UA negative for infection. EKG shows sinus rhythm without any concerning ST changes. Imaging: Head CT is negative for any acute findings. CTA head and neck does not show any significant arterial stenosis or cerebral arterial occlusion/thrombus. Treatment: Stroke alert was initiated in the ED with NIHSS score of 3. Zofran x 1, IV labetalol x 1, Plavix x 1, aspirin 325 mg x 1 Reason for hospitalization: Patient is a 64-year-old female with past medical history of congenital deafness, hypertension, DM2 non insulin dependent, rheumatoid arthritis who presented on 01/08 after she was found by family members for having altered mental status, admitted for stroke rule out with neurology consultation and close monitoring. Patient did not present with any neurological deficits, only echolalia on exam, which resolved the next day. EKG showed sinus rhythm without any concerning ST changes. CT head and CTA were unremarkable. UA was positive for leukocyte esterase however did not show signs of infection. Chest x-ray was negative for pneumonia. No identifiable etiology for encephalopathy from metabolic or infectious. Etiology possibly TIA versus CVA versus elevated blood pressure. MRI 01/10 negative for acute infarct, acute hemorrhage, mass effect, or midline shift. Showed scattered foci possibly suggesting chronic microvascular white matter change or demyelinating disease. Echo bubble study negative for PFO or thrombi, EF 55 to 60% with grade 1 diastolic dysfunction. Based on ABCD score 3 and ASCVD score 5.8%, patient will be discharged with aspirin and atorvastatin 80 mg daily per neurology Dr. Rodríguez. Continue home medications. On discharge patient was alert and oriented x 3 back to baseline. Discharge Recommendations: -Atorvastatin 80 mg once daily at night given recent transient ischemic attack -Left vertebral artery neck is diminished in caliber in its proximal portion on MRI, consider carotid vertebral Doppler sonograph. Please follow up with your primary care provider for further recommendations. -Please hold off on driving until your follow up with neurology, Dr. Crowder -Continue all medication as prescribed -Please follow up with your primary care provider within one week of discharge -If your symptoms worsen,please seek immediate medical attention and return to your nearest emergency room -If you do not have a primary care provider, you may follow up at the [facility] at [address] [place] [address] [address], [place] [address], Hospital Diagnoses: #Acute encephalopathy, improved #Possible TIA #Stroke?ruled out #Demyelinating disease #Hypertensive emergency?resolved #history of hypertension #history of type 2 diabetes, [id number] #CKD stage III A #Congenital deafness #Rheumatoid arthritis #Asthma/COPD? Disposition: Safe discharge to home with home health. Patient plan of care was discussed with the resident, Dr. Rodriguez, and attending physician, Dr. Allison. Gema Mckee, PGY-1 - The patient's plan was discussed with attending Miguel Angel Rodriguez MD PGY2 Internal Medicine Time Spent with Patient Time attestation: Total time spent providing and/or coordinating discharge services: At least 30 minutes of care coordination Time spent: Greater than 30 minutes Home Health Home Health Referral Orders: 01/10/25 15:56 Home Health Referral Routine Reason For Exam: Physical therapy Home-Bound The patient must either because of illness or injury, need the aid of supportive devices such as crutches, canes, wheelchairs, and walkers; the use of special transportation; or the assistance of another person in order to leave their place of residence; OR have a condition such that leaving his or her home is medically contraindicated. In addition, the patient also meets the following criteria: patient is normally unable to leave the home and leaving home requires considerable taxing effort. Addendum to Home Health Certification Practitioner's Certification: I certify that the patient has been under my care in the hospital and the care of attending physician (see below). We had a [id number] encounter on (see date below). My clinical findings indicate that the patient is home bound per the above criteria and the Home Health Services noted in these orders are medically necessary. The primary reason for the [id number] encounter is related to the fact that the patient requires home health services. Date Certifying [id number] Physician Encounter: 01/09/25 Physician's Name who will Assume Oversight for Services: Micheal Sr Physician's Phone No.who will Assume Oversight for Service: PHYSICIST ASTROPHYSICS - Community Resources: No PT to Evaluate: Yes PT to evaluate and provide a treatmnet plan to increase patient's mobility and strength. Wound Care: No IV Therapy: No RN Safety Evaluation: Yes RN to evaluate and create a plan of care that will produce positive outcomes. Palliative Treatment: No Palliative treatment and evaluate the need for hospice. Home Health Aide - Personal Care: No Home Health Aide to assist with any ADL's. Exam Vital Signs Temp Pulse Resp BP Pulse Ox O2 Del Method 98.0 F 80 24 H 170/94 H 98 Room Air 01/11/25 08:00 01/11/25 08:33 01/11/25 08:00 01/11/25 08:33 01/11/25 08:00 01/11/25 08:00 Narrative Exam Physical Exam General: Awake and in no acute distress. Conversational and non-toxic appearing. Sitting up in chair, talking on the phone with her HEENT: Normocephalic, atraumatic, mucous membranes moist. Heart: Regular rate and rhythm, normal S1 and S2, no murmurs. Lungs: Clear to auscultation with no wheezing or crackles. Abdomen: Soft, nondistended, nontender, positive bowel sounds. No guarding or rebound tenderness. Neurologic: Alert and oriented x3, no gross neurological deficit, and patient able to move all 4 extremities. Extremities: No edema. Skin: No rash or ecchymoses. Discharge Plan Plan Patient Disposition: HOME (Self Care) Patient condition on transfer: Stable Care Plan Goals: Instructions: -Atorvastatin 80 mg once daily at night given recent transient ischemic attack -Left vertebral artery neck is diminished in caliber in its proximal portion on MRI, consider carotid vertebral Doppler sonograph. Please follow up with your primary care provider for further recommendations. -Please hold off on driving until your follow up with neurology, Dr. Crowder -Continue all medication as prescribed -Please follow up with your primary care provider within one week of discharge -If your symptoms worsen,please seek immediate medical attention and return to your nearest emergency room -If you do not have a primary care provider, you may follow up at the [facility] at [address] [place] [address] [address], [place] [address], Prescriptions/Referrals Prescriptions/Med Rec: New atorvastatin 80 mg tablet 80 mg PO QPM Qty: 30 0RF Continued Cyclobenzaprine * (FLEXERIL *) 5 MG tablet 5 mg PO TID Qty: 0 Fluticasone/Salmeterol DISKUS * (ADVAIR DISKUS 250/50 *) 1 DISK/DEV DISK.W.DEV 1 puff Inhalation BID Qty: 0 hydrochlorothiazide 25 MG tablet 25 mg PO QAM Qty: 0 ipratropium bromide 0.2 MG/ML solution 0.5 mg Inhalation Q6HR Qty: 0 Albuterol Sulfate HFA (INHALER) (PROVENTIL HFA (INHALER)) 8.5 GM HFA.AER.AD 2 puff Inhalation Q6HR Qty: 0 prednisone 20 MG tablet 20 mg PO QAM Qty: 0 metoprolol tartrate 25 MG tablet 25 mg PO BID Qty: 0 aspirin 81 MG tablet,chewable 81 mg PO QDAY Qty: 30 0RF Discontinued meclizine [Antivert] 25 MG tablet 25 mg PO QDAY Qty: 0 Albuterol Sulfate HFA (INHALER) (PROVENTIL HFA (INHALER)) 8.5 GM HFA.AER.AD 2 puff Inhalation Q6HR Qty: 0 Referrals: Micheal Sr MD [Primary Care Provider] - Bill Rodríguez MD [Physician] - Patient/Caregiver Discharge Instructions Education Materials: Anatomy of the Brain, Risk Factors for Stroke, ED TIA: Transient Ischemic Attack Print Language: Hong Konger Stand Alone Forms: Codie Award Info., Patient Portal Info Letter Discharge Order Discharge Orders: Discharge (Routine); Ordered 01/11/25 Ordered By: Rowena Rodriguez Quality Discharge Quality Measures VTE prophylaxis Attestestation MD Attestation I attest that I was physically present for the evaluation, physical examination, lab and imaging review of the patient with the residents. I discussed the case with the residents and agree with the findings and plans of care as documented above. Riley Allison MD
[2025-01-11 12:00] VITALS: BP 159/91; PULSE 66; PULSE 82; RESP 16; TEMP 37; O2SAT 98
[2025-01-11 13:10] VITALS: BP 149/74; PULSE 73; RESP 19; TEMP 37; O2SAT 97
--- NOTE | 2025-01-13 08:28 | PC.CC ---
Addendum entered by Juan Tay RN 01/13/25 08:54: [facility] accepted and booked, soc pending Original Note: [facility] ref sent out, waiting for responses
== END 2025-01-11 12:48 | disposition home or self-care (01) | DRG 47 ==
LOC: SERX 01-09 00:48 → SERHOLD 01-09 01:31 → S2NX 01-09 02:59
PROVIDERS: Nurse Practitioner Family; Admitting Provider Student in an Organized Health Care Education/Training Program; Emergency Provider Emergency Medicine; PCP Family Medicine; Visit Provider Student in an Organized Health Care Education/Training Program
DX: G45.9 Transient cerebral ischemic attack, unspecified (principal); I16.1 Hypertensive emergency; G93.40 Encephalopathy, unspecified; N18.31 Chronic kidney disease, stage 3a; E11.22 Type 2 diabetes mellitus with diabetic chronic kidney disease; M06.9 Rheumatoid arthritis, unspecified; H90.5 Unspecified sensorineural hearing loss; E78.00 Pure hypercholesterolemia, unspecified; E87.0 Hyperosmolality and hypernatremia; I13.10 Hypertensive heart and chronic kidney disease without heart failure, with stage 1 through stage 4 chronic kidney disease, or unspecified chronic kidney disease; J44.89 Other specified chronic obstructive pulmonary disease; G37.9 Demyelinating disease of central nervous system, unspecified; Z90.710 Acquired absence of both cervix and uterus; Z79.84 Long term (current) use of oral hypoglycemic drugs; Z79.82 Long term (current) use of aspirin; Z79.899 Other long term (current) drug therapy; Z79.51 Long term (current) use of inhaled steroids; Z79.52 Long term (current) use of systemic steroids; Z88.1 Allergy status to other antibiotic agents; Z88.0 Allergy status to penicillin
CPT/HCPCS: 36415; 70450; 70496; 70498; 70553; 71045; 80053; 80061; 80307; 81001; 83036; 83735; 84100; 84443; 84484; 84703; 85025; 85610; 85730; 87077; 87086; 87186; 92526; 92610; 93005; 93306; 97161; 99284; A4649; A9577; J2765; J3475; Q9967; A9270